=== PATIENT | male | born 1940 | race Caucasian/White ===

== ENCOUNTER 2017-02-28 01:00 | Inpatient (IN) | payer MEDICARE, BC ==
[~2017-02-28] VITALS: Ht 190.5 cm; Wt 89.4 kg
[~2017-02-28 01:00] MED LIST: BACLOFEN10 MG PO; CARAFATE1 GM/10 ML PO; LOSARTAN-HCTZ1 EACH; PANTOPRAZOLE SO40 MG PO; ULTRAM50 MG PO; VENLAFAXINE HCL75 M1 PO
[2017-02-28 01:27] LABS: BASOPHILS % 0.4 % (0.0-1.0); EOSINOPHILS # (AUTO) 0.2 (0.0-0.4); EOSINOPHILS % 2.4 % (0.0-6.0); HEMATOCRIT 37.4 % (38.2-49.6); HEMOGLOBIN 11.8 g/dL (14.0-18.0); LYMPHOCYTES # (AUTO) 0.7 (1.0-3.2); LYMPHOCYTES % 9.7 % (18.0-39.1); MEAN CORPUSCULAR HEMOGLOBIN 26.7 pg (28-32); MEAN CORPUSCULAR HGB CONC 31.6 g/dL (31-35); MEAN CORPUSCULAR VOLUME 84.6 fL (81-99); MONOCYTES # (AUTO) 0.4 (0.2-0.8); MONOCYTES % 5.6 % (4.4-11.3); NEUTROPHILS # (AUTO) 5.7 (2.1-6.9); NEUTROPHILS % 81.3 % (38.7-80.0); PLATELET COUNT 238 x10e3/uL (140-360); RED BLOOD COUNT 4.42 x10e6/uL (4.3-5.7); RED CELL DISTRIBUTION WIDTH 15.8 % (11.7-14.4)
[2017-02-28 01:37] LABS: INR 0.92; PROTHROMBIN TIME 12.8 seconds (11.9-14.5)
[2017-02-28 01:38] LABS: PARTIAL THROMBOPLASTIN TIME 27.2 seconds (23.8-35.5)
[2017-02-28 01:47] LABS: ALANINE AMINOTRANSFERASE 23 IU/L (0-55); ALBUMIN 3.6 g/dL (3.5-5.0); ALBUMIN/GLOBULIN RATIO 1.1 (0.8-2.0); ALKALINE PHOSPHATASE 91 IU/L (40-150); ANION GAP 15.6 mmol/L (8-16); BLOOD UREA NITROGEN 16 mg/dL (7-26); BUN/CREATININE RATIO 16 (6-25); CALCIUM 8.7 mg/dL (8.4-10.2); CARBON DIOXIDE 25 mmol/L (22-29); CHLORIDE 108 mmol/L (98-107); CREATINE KINASE 77 IU/L (30-200); CREATININE, SERUM 0.98 mg/dL (0.72-1.25); EST GLOMERULAR FILTRATION RATE > 60 ML/MIN (60-); GLUCOSE 114 mg/dL (74-118); MAGNESIUM 1.9 MG/DL (1.3-2.1); POTASSIUM 3.6 mmol/L (3.5-5.1); SODIUM 145 mmol/L (136-145)
[2017-02-28 01:48] LABS: B-TYPE NATRIURETIC PEPTIDE2 187.4 pg/mL (0-100)
[2017-02-28 02:06] LABS: THYROID STIMULATING HORMONE 1.241 uIU/mL (0.350-4.940); TROPONIN I 0.047 ng/mL (0-0.300)
--- NOTE | 2017-02-28 02:12 | Diagnostic Imaging Report ---
Examination: CT BRAIN WITHOUT CONTRAST History:Confusion. Altered mental status. Comparison studies:None Technique: Axial images were obtained from the skull base to the vertex. Coronal and sagittal images reconstructed from the axial data. Intravenous contrast: None Findings: Scalp: No abnormalities. Bones: No fractures, blastic or lytic lesions. Brain sulci: Appropriate for age. Ventricles: Normal in size and configuration. No hydrocephalus. Extra-axial space: No abnormalities. Parenchyma: There are mild confluent areas of hypoattenuation in the periventricular and subcortical white matter, nonspecific. A chronic infarcts are demonstrated in the, inferior right putamen anterior limb of the right internal capsule and left striatocapsular region. No masses, hemorrhage, or acute cortical based vascular insults. Sellar/suprasellar region: Partially CSF filled. Craniocervical junction: Patent foramen magnum. No Chiari one malformation. Incidental findings: None. Impression: 1. No acute intracranial abnormalities. 2. Mild chronic microvascular ischemic change. 3. Chronic lacunar infarcts, as above. Signed by: Dr. Kerry Sanders M.D. on 02/28/2017 2:08 AM
[2017-02-28 02:24] LABS: BILIRUBIN,URINE NEGATIVE (NEGATIVE); CLARITY,URINE CLEAR (CLEAR); COLOR,URINE YELLOW (YELLOW); KETONES,URINE NEGATIVE (NEGATIVE); LEUKOCYTE ESTERASE ,URINE NEGATIVE (NEGATIVE); NITRITE,URINE NEGATIVE (NEGATIVE); PROTEIN,URINE DIPSTICK NEGATIVE (NEGATIVE); URINE UROBILINOGEN 0.2 mg/dL (0.2 - 1)
[2017-02-28 02:35] LABS: BACTERIA,URINE RARE /HPF; RBC,URINE 0-5 /HPF (0-5); WBC,URINE (MAN) 0-5 /HPF (0-5)
--- NOTE | 2017-02-28 02:54 | Diagnostic Imaging Report ---
EXAMINATION: CHEST SINGLE (PORTABLE) INDICATION: Altered mental status COMPARISON: None FINDINGS: TUBES and LINES: None. LUNGS: Lungs are not well inflated. There are bibasilar atelectasis. There is mild prominence of the central pulmonary vasculature, consistent with pulmonary venous congestion. PLEURA: No pleural effusion or pneumothorax. HEART AND MEDIASTINUM: Cardiac size is mildly enlarged. There are atherosclerotic calcifications within the aorta. BONES AND SOFT TISSUES: No acute osseous lesion. Soft tissues are unremarkable. UPPER ABDOMEN: No free air under the diaphragm. IMPRESSION: No acute thoracic abnormality. Signed by: Dr. Harpreet Wheeler M.D. on 02/28/2017 2:51 AM
--- NOTE | 2017-02-28 03:11 | Diagnostic Imaging Report ---
EXAM: CT Abdomen and Pelvis WITHOUT contrast INDICATION: Abdominal rigidity COMPARISON: 06/16/2016 TECHNIQUE: Abdomen and pelvis were scanned utilizing a multidetector helical scanner from the lung base to the pubic symphysis without administration of IV contrast. Absence of intravenous contrast decreases sensitivity for detection of focal lesions and vascular pathology. Coronal and sagittal reformations were obtained. Routine protocol was performed. IV CONTRAST: None. ORAL CONTRAST: Water RADIATION DOSE: Total DLP: 616.88 mGy*cm Estimated effective dose: (DLP x 0.015 x size factor) mSv COMPLICATIONS: None FINDINGS: LINES and TUBES: None. LOWER THORAX: Mild cardiomegaly without decompensation. Coronary artery disease present. Small sliding hiatal hernia. HEPATOBILIARY: No focal hepatic lesions. No biliary ductal dilation. GALLBLADDER: No radio-opaque stones or sludge. No wall thickening. SPLEEN: No splenomegaly. PANCREAS: No focal masses or ductal dilatation. ADRENALS: No adrenal nodules KIDNEYS/URETERS: No hydronephrosis. No cystic or solid mass lesions. No stones. GI TRACT: No abnormal distention, wall thickening, or evidence of bowel obstruction. There are diverticula within the colon without evidence of diverticulitis. Large amount of stool throughout the colon more significant at the sigmoid colon. Appendix is normal. PELVIC ORGANS/BLADDER: Unremarkable. LYMPH NODES: No lymphadenopathy. VESSELS: There is severe atherosclerotic disease in the aorta and major arterial branches. PERITONEUM / RETROPERITONEUM: No free air or fluid. BONES: There are degenerative changes in the lumbar spine. SOFT TISSUES: Unremarkable. IMPRESSION: 1. No evidence of acute intra-abdominal or pelvic abnormality. 2. Moderate constipation. 3. 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 Harpreet Wheeler M.D. on 02/28/2017 3:07 AM
[2017-02-28] MEDS ORDERED: SODIUM CHLORIDE 0.9% 500ML 500 ML IV ONE (04:00)
[2017-02-28 04:06] LABS: AMPHETAMINES SCREEN,URINE NEGATIVE (NEGATIVE)
[2017-02-28 04:07] LABS: BENZODIAZEPINES SCREEN,URINE NEGATIVE (NEGATIVE); CANNABINOIDS SCREEN,URINE NEGATIVE (NEGATIVE); PHENCYCLIDINE SCREEN,URINE NEGATIVE (NEGATIVE)
[2017-02-28] MEDS ORDERED: TAMSULOSIN HCL0.4 MG (04:40)
[2017-02-28] MEDS ORDERED: GABAPENTIN100 MG PEG (04:40)
[2017-02-28] MEDS ORDERED: OXYBUTYNIN CHLOR5 M1 PO (04:40)
[2017-02-28] MEDS ORDERED: LOSARTAN POTASS25 MG PO (04:40)
[2017-02-28] MEDS ORDERED: FINASTERIDE5 MG PO (04:40)
[2017-02-28 04:49] LABS: ABG HCO3 27 mmol/L (23-28); ABG PCO2 39 mmHg (41-51); ABG PH 7.45 (7.31-7.41); ABG PO2 85 mmHg (80-105)
[2017-02-28] MEDS: SODIUM CHLORIDE 0.9% 1000ML 1,000 ML IV SCH ×2 (05:44→14:21)
[2017-02-28] MEDS ORDERED: HYDRALAZINE HCL 20 MG/ML VIAL IV STA (06:36)
[2017-02-28] MEDS ORDERED: HYDRALAZINE HCL 20 MG/ML VIAL ONE (06:42)
--- NOTE | 2017-02-28 09:49 | Diagnostic Imaging Report ---
History: Passed out Comparison studies: CT head 02/28/2017 Technique: Sagittal T2; axial DWI, FLAIR, MPGR, T1, Coronal FLAIR. Intravenous contrast: None Findings: Scalp: Suboccipital surgical changes with blooming artifact limiting evaluation . No masses . Bone marrow: Normal in signal intensity. Extra-axial: No masses, no fluid collections. Brain sulci: Appropriate for age. Ventricles: Normal in size . No hydrocephalus . Parenchyma: Confluent and scattered T2/FLAIR hyperintensities of the periventricular and deep white matter. Chronic lacunar infarct at the right striatocapsular and left thalamocapsular regions. Volume loss is seen at the lower vermis No masses, hemorrhage, acute or chronic vascular insults. Suprasellar region: No abnormalities. Craniocervical junction: No abnormalities. Patent foramen magnum. No Chiari one malformation. Vessels: Normal flow-voids in the arteries and sinuses. Mucous retention cysts at the right maxillary sinus. IMPRESSION: 1. No acute intracranial abnormalities. 2. Moderate chronic microvascular ischemic changes of the white matter and diffuse age-related volume loss. 3. Suboccipital surgical changes/fixation. Signed by: DR Manohar Holguin M.D. on 02/28/2017 9:46 AM
[2017-02-28 10:02] VITALS: BP 182/90
[2017-02-28 10:04] LABS: CREATINE KINASE MB 3.4 ng/mL (0.00-5.00); TROPONIN I 0.021 ng/mL (0-0.300)
[2017-02-28] MEDS ORDERED: ASPIRIN 81 MG CHEW TAB PO ONE (10:30)
[2017-02-28] MEDS ORDERED: TRAMADOL HCL 50 MG TAB PO PRN (10:30)
[2017-02-28] MEDS: NITROGLYCERIN 2% OINT 1 GM PKT TOP SCH ×2 (10:46→16:40)
[2017-02-28 10:58] VITALS: BP 182/90
[2017-02-28 11:05] VITALS: BP 182/90
--- NOTE | 2017-02-28 11:13 | History and Physical ---
ATTENDING PHYSICIAN: SHALINI Julian. CLINICAL HISTORY: A 76-year-old white man admitted via the emergency room for Dr. Maegan Austin because of altered mental status. This patient has history of hypertension, GI bleed, chronic pain followed by pain specialist and bladder ulcers. Admitted via the emergency room because of altered mental status, slurring of speech. This patient has had difficulty waking up recently and has been sleeping more than usual, but apparently was still in his normal state of health until 11 p.m., when the returned from choir meeting and noticed that he was in the game room slumped over, poorly responsive. He was brought to the emergency room where he had some slurring of speech. MRI scan showed volume loss, microvascular chronic lacunar infarct in the right capsular region as well as left thalamocapsular region. Blood tests were relatively benign with above borderline anemia. CT of the abdomen was unrevealing. Chest x-ray was negative. The patient is being admitted for further evaluation and treatment. PAST MEDICAL HISTORY: Remarkable for hypertension. PERSONAL/SOCIAL HISTORY: Denies smoking, drinking. 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 REVIEW OF SYSTEMS: Remarkable for traumatic injury to C2 resulting in chronic pain. ALLERGIES: None known. PHYSICAL EXAMINATION GENERAL: He is sleepy, disoriented. CARDIOVASCULAR EXAMINATION: Jugular veins were not distended. S1 S2 were regular. There is no appreciable murmur. RESPIRATORY: Clear. ABDOMEN: Soft. Bowel sounds are present. EXTREMITIES: Show no cyanosis, clubbing, edema. LABORATORY STUDIES: Electrocardiogram shows sinus rhythm. The white count is 6900, hemoglobin 11.8, platelet count 238,000. Electrolytes are normal. IMPRESSION 1. Altered mental status of undetermined etiology. Consider medications. Stroke is probably less likely because he has no focal findings. 2. Possible old lacunar infarcts. 3. Hypertension. 4. Mild anemia. 5. History of gastrointestinal ulcers. 6. History of bladder ulcers. 7. History of asthma. RECOMMENDATIONS: Echocardiogram Doppler scan of the carotid. Workup for possible stroke. Consult Neurology. Consider urology consultation with his physician, who is Dr. Bean Cox. This patient follows with Dr. Manda Farah, phone number [phone] for his [address] Farah is an interventional anesthesiologist. Job#: [id number] PEREIRA cc:MAEGAN AUSTIN MD
[2017-02-28] MEDS: SUCRALFATE 1 GM/10 ML SUSP PO SCH ×2 (11:30→16:40)
[2017-02-28 11:51] VITALS: BP 173/86
[2017-02-28 16:06] VITALS: BP 159/85
[2017-02-28 19:51] LABS: CREATINE KINASE MB 2.7 ng/mL (0.00-5.00); TROPONIN I 0.027 ng/mL (0-0.300)
[2017-02-28 20:06] VITALS: BP 143/78
[2017-02-28] MEDS: TRAMADOL HCL 50 MG TAB PO PRN (22:31)
[2017-03-01] VITALS (8 sets, daily range): BP systolic 115–207; BP diastolic 63–107
--- NOTE | 2017-03-01 00:05 | Consultation ---
DATE OF CONSULTATION: February 28, 2017 REASON FOR CONSULTATION: Incontinence and BPH. HISTORY: A 76-year-old male who was originally seen by me in the office on August 02, 2016, with a complaint of prostate enlargement, urinary incontinence, wearing pads, 3-4 pads per day, and urination every 2 hours and some times 1 hour during the day. The patient also stated that this had been going on for quite some time and progressively getting worse. Has seen other doctors about this, and nothing has been resolved. I discussed the problem with him. Obtained a PSA from his previous doctor. It was elevated at 5.7. I scanned the patient in the office the day that was seen. His bladder was empty. We started by doing some lab work to make sure that he did not have renal failure. In fact, his creatinine was 0.9, BUN of 26, glucose of 115, which was all normal. His sodium 139, potassium 4.3, calcium 9.2, albumin 4.2. All the tests were normal. The interesting scenario here was that he was scanned for 10 mL of postvoid residual. I feel that the patient may have a neurogenic bladder. Ordered renal ultrasound, which was read as normal, except for a small cyst on the superior pole of the right kidney. Urodynamic testing was performed, and it showed that the patient had a severe uninhibited bladder contraction with a small capacity bladder. When the contraction occurred, the patient emptied his bladder completely uninhibited without him being able to stop the contraction. He was brought to the office on August 23, 2016, and underwent a cystoscopy, which revealed an intravesical component of the prostate with moderate trabeculation and obstruction, as well as exudate compatible with prostatitis. At that time, he was started on Myrbetriq. That became too expensive for the patient, and therefore, he was switched over to oxybutynin. A repeat urodynamic revealed that the oxybutynin improved the pressures inside the bladder, meaning decreased the pressure inside the bladder. His incontinence was not as severe as prior to taking anticholinergics, but oxybutynin alone would not improve his problem any longer. His PSA was repeated on January 04, 2017. At that time, glucose was 90. His creatinine was 0.9. His BUN was 21 and his PSA was 1.2. That was after oxybutynin and antibiotics. Also, after Proscar and Flomax. His prostatitis and inflammation of the prostate with exudate that the patient had 5 months earlier had improved on the medication that was given. The patient had a severe trabeculation of the bladder. He obviously has a severe neurogenic bladder that he has had for quite some time with uninhibited bladder contractures that are quite severe, and improved on oxybutynin, but also an obstructed component due to the large prostate. At that time, I discussed the situation with the patient, and told him that perhaps the patient with the severe overactive bladder may be a candidate for Botox injections. We also discussed that with Botox he may go into urinary retention, and may need a [place] catheter and intermittent catheterization or indwelling for up to a few weeks. He may need to have some treatment of the prostate. I suggested not a TURP, because with his uninhibited bladder contraction, his incontinence will become worse. We discussed the possibility of having a UroLift if the Botox puts him in retention. At the time of discussion, the patient opted to continue taking oxybutynin since he has improved his symptoms, as well as the treatment with the Flomax and the Proscar that have also improved his inflammation since his PSA now is 1.2 instead of 5.3 as he had 5 months earlier. The patient is admitted now with mental confusion. Mental confusion is seen also in patients taking anticholinergics. I do not know if the oxybutynin had caused this, but he had been taking it now for approximately 5 months with no problems prior to this admission. Therefore, currently I will await further evaluation on the patient towards his mental confusion. We may need to stop the oxybutynin. As far as his bladder symptoms, there is nothing else I can do for the patient at this point. Botox is something that the patient will need to be placed under anesthesia to be given. At the present time, the patient is not a candidate for this. Job#: [id number] JORGE
[2017-03-01] MEDS: SODIUM CHLORIDE 0.9% 1000ML 1,000 ML IV SCH ×3 (01:00→20:22)
[2017-03-01 03:07] LABS: CREATINE KINASE MB 3.1 ng/mL (0.00-5.00); TROPONIN I 0.023 ng/mL (0-0.300)
[2017-03-01] MEDS: LOSARTAN POTASSIUM 25 MG TAB PO SCH (03:49)
[2017-03-01] MEDS: TRAMADOL HCL 50 MG TAB PO PRN ×3 (04:53→18:32)
[2017-03-01] MEDS: NITROGLYCERIN 2% OINT 1 GM PKT TOP SCH ×4 (05:25→16:52)
[2017-03-01 06:56] LABS: BASOPHILS % 0.5 % (0.0-1.0); EOSINOPHILS # (AUTO) 0.1 (0.0-0.4); EOSINOPHILS % 1.7 % (0.0-6.0); HEMATOCRIT 36.9 % (38.2-49.6); HEMOGLOBIN 11.8 g/dL (14.0-18.0); LYMPHOCYTES % 12.9 % (18.0-39.1); MEAN CORPUSCULAR HEMOGLOBIN 26.5 pg (28-32); MEAN CORPUSCULAR VOLUME 82.9 fL (81-99); MONOCYTES # (AUTO) 0.5 (0.2-0.8); MONOCYTES % 6.1 % (4.4-11.3); NEUTROPHILS % 78.4 % (38.7-80.0); PLATELET COUNT 246 x10e3/uL (140-360); RED BLOOD COUNT 4.45 x10e6/uL (4.3-5.7); RED CELL DISTRIBUTION WIDTH 15.7 % (11.7-14.4)
[2017-03-01] MEDS ORDERED: TERAZOSIN HCL 1 MG CAP PO SCH ×2 (07:15→07:30)
[2017-03-01 07:19] LABS: ALANINE AMINOTRANSFERASE 18 IU/L (0-55); ALBUMIN 3.3 g/dL (3.5-5.0); ALBUMIN/GLOBULIN RATIO 1.1 (0.8-2.0); ALKALINE PHOSPHATASE 84 IU/L (40-150); ANION GAP 12.6 mmol/L (8-16); BLOOD UREA NITROGEN 12 mg/dL (7-26); BUN/CREATININE RATIO 15 (6-25); CALCIUM 8.4 mg/dL (8.4-10.2); CARBON DIOXIDE 24 mmol/L (22-29); CHLORIDE 108 mmol/L (98-107); CREATININE, SERUM 0.79 mg/dL (0.72-1.25); EST GLOMERULAR FILTRATION RATE > 60 ML/MIN (60-); GLUCOSE 100 mg/dL (74-118); MAGNESIUM 2.1 MG/DL (1.3-2.1); POTASSIUM 3.6 mmol/L (3.5-5.1); SODIUM 141 mmol/L (136-145)
[2017-03-01] MEDS: SUCRALFATE 1 GM/10 ML SUSP PO SCH ×3 (07:55→16:52)
[2017-03-01] MEDS: TAMSULOSIN HCL 0.4 MG CAP PO SCH (07:55)
[2017-03-01] MEDS: PANTOPRAZOLE SOD 40 MG TABEC PO SCH (07:55)
[2017-03-01] MEDS: FINASTERIDE 5 MG TAB PO SCH (07:55)
[2017-03-01] MEDS: ACETAMINOPHEN 325 MG TAB PO PRN ×2 (09:38→15:35)
--- NOTE | 2017-03-01 10:11 | Cardiology Report ---
DATE OF STUDY: DOPPLER SCAN OF CAROTID ARTERIES The left and right carotid arteries were interrogated using the duplex scanning method. Left carotid artery shows heavy plaquing in the left carotid bulb. However, there is no flow impairment. Velocity, however, was increased in the left external carotid artery with velocity of 1.65 meters per second consistent with moderate stenosis. Left vertebral flow appears to be antegrade. Right carotid artery shows heavy partially calcified plaque at the right carotid bulb with significant luminal stenosis. However, the flow velocity was only 1.34 meters per second. Right vertebral flow appears to be antegrade. CONCLUSIONS 1. Large partially calcified bulky plaque in the right carotid bulb. However, the flow velocity was less than expected at 1.34 meters per second consistent with moderate stenosis in the range of 50% to 70%. 2. Heavily plaque left carotid bulb without significant flow impairment. 3. Moderate stenosis involving the left external carotid artery with velocity in the range of 1.65 meters per second. 4. Vertebral flow appears to be antegrade bilaterally. Job#: [id number] RI cc:MAEGAN AUSTIN MD
--- NOTE | 2017-03-01 10:14 | Cardiology Report ---
DATE OF STUDY: ECHOCARDIOGRAM M-MODE: Mildly dilated left atrium. Left ventricular hypertrophy. Normal contractility. Normal mitral and tricuspid valves. Aortic sclerosis. No pericardial effusion. SECTOR SCAN: Mildly dilated left atrium. Left ventricular hypertrophy. Normal contractility. Ejection fraction is approximately 65%. Aortic valve is mildly sclerotic. Mitral and tricuspid valves are normal. There is no pericardial effusion. CARDIAC DOPPLER STUDY WITH COLOR: Trace mitral and tricuspid regurgitation. CONCLUSIONS 1. Left ventricular hypertrophy with ejection fraction 65%. 2. Trace mitral regurgitation with mildly dilated left atrium. 3. Aortic sclerosis with no stenosis. 4. Trace tricuspid regurgitation without significant pulmonary hypertension. Job#: [id number] RI cc:MAEGAN AUSTIN MD
--- NOTE | 2017-03-01 14:46 | Diagnostic Imaging Report ---
PROCEDURE:X-RAY MODIFIED BARIUM SWALLOW COMPARISON:None. INDICATIONS:Globus sensation inferior swallowing, history of neck surgery. RADIATION DOSE: Fluoroscopy Time: Dose (Kerma) Area Product: Gycm2 Air Kerma (AK) value has been reviewed. It is below the limits set by the Radiation Protocol Committee (RPC) committee. FINDINGS: Normal oral phase. Vallecular residue on pharyngeal phase with globus sensation; resolved with ingestion of liquids. No penetration or aspiration. A small pulsation diverticulum is present. No cricopharyngeal abnormalities. CONCLUSION: No penetration or aspiration. Please see the report from speech pathology for complete details. Small pulsation diverticulum. Dictated by: Martha Puentes M.D. on 03/01/2017 at 14:52 Electronically approved by: Martha Puentes M.D. on 03/01/2017 at 14:52
--- NOTE | 2017-03-01 17:09 | Consultation ---
DATE OF CONSULTATION: March 01, 2017, at 2:30 in the afternoon NEUROLOGICAL CONSULTATION ATTENDING PHYSICIAN: Beltran Cespedes MD REASON FOR CONSULTATION: Altered mental status. This is a 76-year-old male who apparently had been in his normal state of health until the night of admission. They said the came home and found him in a room that was dark, sitting, collapsed there. Apparently, there was no response. It only lasted for a few minutes. She tried to get him up, and he fell forward. That is the reason they called an ambulance, and they brought him to the emergency room. The patient was confused, disoriented. Yesterday morning, he felt a little better, but still had confusion. According to his who was present in the room, he never had any kind of problem like this in the past. He denies any headache. He has chronic neck pain related to previous neck surgery. He denies any weakness in the upper and lower extremities. He has been following up with a pain specialist because of back pain and taking pain medications. PAST MEDICAL HISTORY 1. Hypertension. 2. Fracture of the neck. He underwent surgery for the neck twice. ALLERGIES: NONE KNOWN. SOCIAL HISTORY: He does not smoke or drink. He lives with his . REVIEW OF SYSTEMS: All 12 steps are negative except for what is described above. GENERAL PHYSICAL EXAMINATION VITAL SIGNS: Stable. GENERAL: The patient is sitting comfortably. LUNGS: Clear to auscultation. HEART: Regular sinus rhythm. No murmur. ABDOMEN: Nontender. No organomegaly. MUSCULOSKELETAL: Lower extremities have no edema, no cyanosis, no clubbing, chronic neck pain. NEUROLOGIC EXAMINATION MENTAL STATUS: He is awake and alert. He said today is the . He said it is January. He said 17. We said, "What is 17?" He said "191." He recognized his 's name. He knows he is at [facility]. Right and left orientation is normal. Naming body parts and colors is negative. CRANIAL NERVES: Pupils are both equal and reactive. The extraocular movements are full. Visual ham on confrontation are grossly normal. No facial weakness. Facial sensation is normal. Tongue protrudes in the midline. MOTOR POWER: Upper and lower extremities show no evidence of weakness in both proximal or distal muscles of both upper and lower extremities. The patient is able to elevate both arms and legs against gravity quite normally. DEEP TENDON REFLEXES: Triceps, biceps and radials are 1+. Knee jerks are 1+. Ankle jerks are absent bilaterally. Plantar stimulation is down bilaterally. SENSORY: Touch and pinprick are normal. HEAD: Normocephalic. NECK: Limitation of neck motion. GAIT: Deferred. LABORATORY WORKUP: CBC shows white count 7600, hemoglobin 11.8, hematocrit 35.9, platelets 243,000. Chemistry: Sodium 141, potassium 3.6, BUN 20, creatinine 0.79, estimated GFR greater than 60. Liver enzymes are normal. Toxicology is negative. Urinalysis is negative. MRI of the brain shows multiple small chronic lacunar infarctions seen bilaterally. No evidence of acute ischemic infarction or hemorrhagic lesions. IMPRESSION 1. Acute altered mental status, etiology undetermined, rule out toxic encephalopathy. 2. Hypertension. 3. Anemia. 4. History of asthma. I have discussed with the . I have reviewed the MRI of the brain, which does not show any pathology to explain this. There is no evidence of small stroke that the was concerned about. I think he is going to need physiotherapy, and I told her that here I saw him with walking with physical therapy with a walker. We will continue ambulation. Probably, he is going to need some rehabilitation. No further imaging testing is necessary at the present time. Job#: [id number]
[2017-03-01] MEDS: TERAZOSIN HCL 1 MG CAP PO SCH (21:12)
[2017-03-02] VITALS: BP 161/89
[2017-03-02] MEDS: TRAMADOL HCL 50 MG TAB PO PRN ×3 (02:30→20:35)
[2017-03-02 04:00] VITALS: BP 174/91
[2017-03-02] MEDS: LOSARTAN POTASSIUM 25 MG TAB PO SCH (05:40)
[2017-03-02] MEDS: SODIUM CHLORIDE 0.9% 1000ML 1,000 ML IV SCH ×2 (07:00→17:00)
[2017-03-02] MEDS: SUCRALFATE 1 GM/10 ML SUSP PO SCH ×3 (08:30→17:31)
[2017-03-02 08:45] VITALS: BP 172/93
[2017-03-02] MEDS: PANTOPRAZOLE SOD 40 MG TABEC PO SCH (09:18)
[2017-03-02] MEDS: FINASTERIDE 5 MG TAB PO SCH (09:18)
[2017-03-02] MEDS: TAMSULOSIN HCL 0.4 MG CAP PO SCH (09:18)
[2017-03-02 12:01] VITALS: BP 174/92
--- NOTE | 2017-03-02 12:53 | Consultation ---
DATE OF CONSULTATION: March 02, 2017 REHAB CONSULTATION REFERRING PHYSICIAN: Dr. Beltran Cespedes. I would like to thank Dr. Cespedes for asking me to see Mr. Medeiros in consultation. REASON FOR CONSULTATION 1. Altered mental status. 2. Impaired mobility. 3. History of C2 fracture. HISTORY: Mr. Medeiros is a 76-year-old male who was in his normal state of health until his came home and found him in a room that was dark, sitting collapsed there, was unresponsive. It lasted for a few minutes, and then they tried to get him up but then he fell forward again. Patient still had some confusion. He came into the hospital for further evaluation. This had not happened to him before. Patient was not as mobile as before, was admitted on February 28, 2017. Patient was seen by Dr. Downey and not felt to have a new stroke. Not really complaining of neck pain at this time. Underwent brain MRI which showed no acute intracranial abnormalities, moderate chronic microvascular ischemic changes in white matter, and diffuse age-related volume loss. Suboccipital and surgical changes with fixation. He had a modified barium swallow done yesterday which showed no penetration or aspiration. Carotid Doppler study was done also, which showed large, partially calcified, bulky plaque in the right carotid bulb. However, the flow velocity was less than expected, 1.3 liters per second, consistent with moderate stenosis in the range of 50% to 70%, heavy plaque in the left carotid bulb without significant impairment of flow, moderate stenosis involving the left external carotid artery with velocity in the range of 1.6 meters per second, and vertebral flow appears to be antegrade bilaterally. PAST MEDICAL HISTORY: Hypertension, fracture of the neck and left lateral meniscal injury, chronic arthritic changes in the hands. SURGERIES: Include a CT fracture repair and revision. He has also had a left knee replacement. ALLERGIES: NO KNOWN DRUG ALLERGIES. HABITS: Nonsmoker, nondrinker. SOCIAL HISTORY: Lives with his in a two-story home, but bedroom is downstairs. Was a limited ambulator, really did not go out in the community much, walks slowly but without any kind of assistive device. FAMILY HISTORY: Noncontributory. CONSTITUTIONAL REVIEW OF SYSTEMS GENERAL: He has a slow type of gait secondary to his injury from before and meniscal injury. EYES: Denies. EARS: Denies. ORAL: Has some swallowing issues, but swallow study was negative. CARDIAC: Denies. GI: Denies. : Has frequency of urine, cannot get to the bathroom in time because of his bladder spasticity. NEUROLOGIC: Has muscle wasting of the hands in addition to arthritis. HEMATOLOGIC: Denies. LABS: White cell count of 7.66, hemoglobin 11.8, hematocrit 36.9, platelets of 246. Sodium is 141, potassium 3.6, BUN of 12, creatinine 0.79. THERAPY NOTES: Show that the patient sat up at the edge of the bed. No issues. Demonstrated good sitting balance. Able to ambulate with a rolling walker 200 feet with slow gait. No loss of balance. Did need some requeuing to stand straight up and was able to walk the last 50 feet without any rolling walker and did demonstrate good standing balance and no loss of balance. PHYSICAL EXAMINATION GENERAL: The patient is awake, alert, oriented. No apparent distress at this time. EYES: Gaze is conjugate. ORAL: Tongue is midline. No dysarthria. NECK: Palpated the neck. No pain with palpation, no pain at all at this time. HEART: Regular. LUNGS: Fair entry. ABDOMEN: Nondistended, nontender. EXTREMITIES: He has arthritic changes of the PIP, MCP and to a lesser extent the DIP. There is intrinsic muscle wasting of the hands. Thenar prominence is diminished as well as the intrinsic muscles bilaterally. This is not new. He had pretty much full range of motion to the legs. A little bit of pain to the left lateral meniscus area, which has been an ongoing problem. SENSORY-STEPHENS: Denies any numbness or tingling, hands, feet or face. No new sensory changes or neurologic changes at this time. MANUAL MUSCLE TESTING: Doubler Operator was essentially 4-/5 strength bilaterally. Elbow flexion and extension, shoulder flexion and extension is 4+/5 to 5/5 bilaterally. In the lower extremities, hip and knee and ankle dorsiflexion and plantar flexion is 5/5 strength throughout. IMPRESSION 1. Encephalopathy. Patient currently seems to be very close to his baseline with regards to mobility. 2. He has some intrinsic muscle wasting most likely associated with his previous cervical fracture. 3. Rheumatoid arthritis to the hands. 4. Left meniscal injury, old. PLAN: At this time, the patient is not quite back to baseline but is close to it; and given the fact that he can walk pretty much slowly and will be there, they elect to go home, which is appropriate with home health therapy just to keep him mobilizing. I reiterated need for safety, especially with gait, but he is actually doing a pretty good job right now. May want to consider using a rolling walker until he is really steady on his feet. They agree to home health services as his will be with him and early functioning seems to be pretty close to his baseline. Thank you once again for allowing me to participate in the care of this very interesting patient. PRECAUTIONS: Falls. Job#: [id number] EV
[2017-03-02] MEDS ORDERED: NEOMYCIN/POLYMYXIN/BACITRACIN 15 GM TUBE TOP PRN (16:00)
[2017-03-02 17:11] VITALS: BP 141/85
[2017-03-02] MEDS ORDERED: MAGNESIUM HYDROXIDE 30 ML UDC PO NR (18:00)
[2017-03-02 19:40] VITALS: BP 175/93
[2017-03-02] MEDS: TERAZOSIN HCL 1 MG CAP PO SCH (20:20)
[2017-03-03] VITALS: BP 160/76
[2017-03-03] MEDS: SODIUM CHLORIDE 0.9% 1000ML 1,000 ML IV SCH ×2 (03:00→13:00)
[2017-03-03 05:00] VITALS: BP 148/78
[2017-03-03 07:56] VITALS: BP 158/86
[2017-03-03] MEDS: TRAMADOL HCL 50 MG TAB PO PRN (09:00)
[2017-03-03] MEDS: SUCRALFATE 1 GM/10 ML SUSP PO SCH ×2 (09:00→12:10)
[2017-03-03] MEDS: TAMSULOSIN HCL 0.4 MG CAP PO SCH (09:00)
[2017-03-03] MEDS: LOSARTAN POTASSIUM 25 MG TAB PO SCH (09:00)
[2017-03-03] MEDS: PANTOPRAZOLE SOD 40 MG TABEC PO SCH (09:00)
[2017-03-03] MEDS: FINASTERIDE 5 MG TAB PO SCH (09:00)
[2017-03-03 12:16] VITALS: BP 161/90
[2017-03-03] MEDS ORDERED: COZAAR25 MG PO (12:18)
[2017-03-03] MEDS ORDERED: TERAZOSIN HCL1 MG PO (12:18)
[2017-03-03] MEDS ORDERED: LOSARTAN POTASSIUM 25 MG TAB PO SCH (17:00)
--- NOTE | 2017-03-04 08:28 | Discharge Summary ---
CLINICAL HISTORY: This is a 76-year-old white man who presented to the emergency room with acute altered mental status possibly due to toxic encephalopathy. Please refer to my previous dictation concerning details of current illness, past medical history, personal and social history, family history, review of systems, physical examination and initial laboratory studies. HOSPITAL COURSE: The patient had an MRI scan at the time of admission which showed bilateral lacunar infarct, apparently old. There were microvascular chronic changes in the white matter and cervical neck surgery noted. Echocardiogram carotid Dopp scans were negative for causes of CVA. Barium swallow showed no aspiration. Patient was able to eat, swallow his pill, participate with rehabilitation. Eventually was able to walk with walker nearly back to baseline. Rehab consultation was obtained with Dr. Shaun Berry, who felt the patient was close to baseline. Can go home. Bean Cox, urologist, also saw him and found the patient can be discharged. Patient became oriented x4, able to name the President. Wants to go home. feels that she can take care of him. They have been cautioned concerning safety, to walk slowly with the walker. We will send home health to their house. DISCHARGE DIAGNOSES 1. Toxic encephalopathy possibly related to medications with the patient cautioned to decrease pain medications. 2. Chronic pain. 3. History of cervical spine injury and surgery. 4. Left ventricular ejection fraction 65%. 5. 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 6. Hypertension. 7. Rheumatoid arthritis. 8. Mild anemia, hemoglobin 11.8. 9. History of gastrointestinal ulcer. 10. History of asthma. 11. History of bladder ulcers. 12. Old lacunar infarct, probably not related to altered mental status. DISCHARGE MEDICATIONS: The patient is discharged on losartan 50 mg p.o. b.i.d., 2 mg p.o. nightly for management of blood pressure, oxybutynin, gabapentin, lactoferrin, Baclofen, and venlafaxine should be used with caution. Finasteride 5 mg per day may be continued, pantoprazole 40 mg p.o. daily, Carafate 1 g p.o. daily, tamsulosin 0.4 mg p.o. q.24 hours and Ultram 50 mg q.6 hours p.r.n. will be continued. ADDENDUM: This patient also sees a pain specialist. CHELSI BURRELL MD Job#: [id number] PEREIRA cc:MD BEAN GARCIA MD MAURICE HADDAD, MD
== END 2017-03-03 14:52 | disposition home health service (06) | DRG 93 ==
LOC: ER 01:00 → ERHOLD 05:04 → MED/SURG 09:18
PROVIDERS: ADMIT Internal Medicine Cardiovascular Disease; ATTEND Internal Medicine Cardiovascular Disease
DX: G92 Toxic encephalopathy (principal); D64.9 Anemia, unspecified; M06.9 Rheumatoid arthritis, unspecified; I10 Essential (primary) hypertension; T44.3X5A Adverse effect of other parasympatholytics [anticholinergics and antimuscarinics] and spasmolytics, initial encounter; N40.1 Benign prostatic hyperplasia with lower urinary tract symptoms; R33.8 Other retention of urine; Z86.73 Personal history of transient ischemic attack (TIA), and cerebral infarction without residual deficits; J45.909 Unspecified asthma, uncomplicated; I51.7 Cardiomegaly; I65.21 Occlusion and stenosis of right carotid artery; G89.29 Other chronic pain; R26.89 Other abnormalities of gait and mobility; M62.58 Muscle wasting and atrophy, not elsewhere classified, other site
CPT/HCPCS: 36415; 36600; 70450; 70551; 71010; 74176; 74230; 80053; 80307; 80320; 81001; 82140; 82550; 82553; 82805; 83605; 83735; 83880; 84443; 84484; 85025; 85610; 85651; 85730; 86039; 87040; 87086; 93005; 93306; 93880; 99284; J0360; J7030; J7040

== ENCOUNTER → 2017-12-28 | Day surgery (SDC) | payer MEDICARE, BC ==
[2017-12-25 14:25] LABS: BASOPHILS # (AUTO) 0.1 (0.0-0.1); BASOPHILS % 1.3 % (0.0-1.0); EOSINOPHILS # (AUTO) 0.1 (0.0-0.4); EOSINOPHILS % 2.9 % (0.0-6.0); HEMATOCRIT 34.4 % (38.2-49.6); HEMOGLOBIN 10.6 g/dL (14.0-18.0); LYMPHOCYTES # (AUTO) 0.5 (1.0-3.2); LYMPHOCYTES % 12.5 % (18.0-39.1); MEAN CORPUSCULAR HGB CONC 30.8 g/dL (31-35); MEAN CORPUSCULAR VOLUME 87.5 fL (81-99); MONOCYTES # (AUTO) 0.3 (0.2-0.8); MONOCYTES % 7.8 % (4.4-11.3); NEUTROPHILS # (AUTO) 2.9 (2.1-6.9); PLATELET COUNT 177 x10e3/uL (140-360); RED BLOOD COUNT 3.93 x10e6/uL (4.3-5.7); RED CELL DISTRIBUTION WIDTH 16.3 % (11.7-14.4)
[2017-12-25 15:08] LABS: RBC MORPHOLOGY COMMENT NORMAL
[2017-12-25 15:09] LABS: PLATELET ESTIMATE ADEQUATE; PLATELET MORPHOLOGY COMMENT NORMAL
[~2017-12-28] MED LIST changes: +ASPIRIN325 MG PO; +COZAAR25 MG PO; +EPINEPHRINE HCL INJ 1 MG/ML AMP ONE; +FENTANYL CITRATE/PF 100MCG/2 ML INJ ONE; +FENTANYL1 EAC1 TD; +FINASTERIDE5 MG PO; +GABAPENTIN100 MG; +GABAPENTIN100 MG PEG; +ISOSORBIDE DINI20 MG PO; +LIDOCAINE HCL 2% LOCAL INJ 5 ML SDV VIAL INJ ONE; +LOSARTAN POTASS25 MG PO; +METOCLOPRAMIDE HCL 10 MG/2ML VIAL ONE; +METOPROLOL TART25 MG PO; +MIDAZOLAM HCL 2 MG/2 ML VIAL ONE; +OXYBUTYNIN CHLOR5 M1 PO; +OXYBUTYNIN CHLOR5 MG PO; +PANTOPRAZOLE 40 MG 10ML VIAL ONE; +PROPOFOL IV EMULSION 10 MG/ML 50 ML VIAL ONE; +SIMVASTATIN20 MG PO; +TAMSULOSIN HCL0.4 MG; +TERAZOSIN HCL1 MG PO; +VENLAFAXINE HCL75 MG PO
[2017-12-28 15:53] LABS: INR 1.16; PROTHROMBIN TIME 13.9 seconds (11.9-14.5)
[2017-12-28 15:54] LABS: PARTIAL THROMBOPLASTIN TIME 33.8 seconds (23.8-35.5)
--- NOTE | 2017-12-28 15:54 | Operative Report ---
DATE OF PROCEDURE: December 28, 2017 REFERRING PHYSICIAN: Erika Mccord MD PROCEDURE PERFORMED: Esophagogastroduodenoscopy with esophageal dilatation and duodenal stricture dilatation per TTS balloon dilators. MEDICATION: Patient was done under MAC. INDICATIONS FOR PROCEDURE: Dysphagia, nausea, vomiting, postprandial bloating. MEDICATION: Patient was done under MAC. Please see anesthesiologist's note. PROCEDURE: With the patient in the left lateral decubitus position, the flexible fiberoptic Olympus gastroscope was introduced into the esophagus under direct visualization without any difficulty. There were some erosions noted in the distal esophagus. A mild stricture was noted at the GE junction, and that was dilated to a size 52-Danish Romero. The scope was then advanced with ease into the stomach, traversing a moderate-size hiatal hernia. A large amount of retained liquid debris was noted in the stomach, and that was aspirated with the scope. The mucosa overlying the antrum and the body revealed some patchy areas of intense erythema. Pylorus was of normal contour and shape. It was intubated with ease. There was a tight stricture at the junction of the bulb and 2nd portion, and that was dilated to a size 20-Danish per TTS balloon dilators. The scope was then advanced with ease to the 2nd portion of the duodenum. It was then withdrawn slowly, and the mucosa overlying the proximal 2nd portion grossly appeared to be within normal limits. There was some oozing noted from the stricture site post dilatation, and 1:10,000 epinephrine was injected with good hemostasis and the site was hemoclipped times 2. The scope was then withdrawn back into the stomach, and the stomach was decompressed. The scope was subsequently withdrawn. Patient tolerated the procedure well. IMPRESSION 1. Erosive esophagitis. 2. Esophageal stricture at gastroesophageal junction dilated to a size 52-Danish Romero. 3. Moderate-size hiatal hernia. 4. Gastritis. 5. 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 6. Injection therapy with 1:10,000 epinephrine as well as hemoclipping times 2 of the duodenal stricture that bled post dilatation. Good hemostasis was attained. PLAN: Increase Protonix to 40 mg 1 p.o. a.c. b.i.d. Continue Carafate 1 gram p.o. a.c. t.i.d. and check PT and PTT. Job#: [id number] cc:ERIKA MCCORD MD
--- NOTE | 2017-12-28 17:35 | Diagnostic Imaging Report ---
Exam: Abdominal film Clinical History: Abdominal pain, stomach pain Comparison: CT abdomen and pelvis 02/26/2017 DISCUSSION: Multiple centrally located small bowel loops which are mildly to moderately dilated, with maximal measurement of approximately 4.0 cm. Moderate retained stool in the left colon. There is noted in the rectum. No abnormal calcifications project over the genitourinary system. No acute bony abnormalities. Degenerative disc changes in the lumbosacral spine, with associated mild leftward curvature. IMPRESSION: 1. Multiple centrally located small bowel loops show mild to moderately dilated. This may represent small bowel obstruction versus ileus. The staff physician below has personally reviewed this exam on the date of dictation. Signed by: Dr. Nuno Riggs M.D. on 12/28/2017 5:31 PM
[2017-12-28 17:50] VITALS: BP 151/75
== END | disposition home or self-care (01) ==
LOC: OR 11:21
PROVIDERS: ATTEND Internal Medicine Gastroenterology
DX: K22.2 Esophageal obstruction (principal); K31.5 Obstruction of duodenum; K29.70 Gastritis, unspecified, without bleeding; K22.10 Ulcer of esophagus without bleeding; K44.9 Diaphragmatic hernia without obstruction or gangrene; K31.89 Other diseases of stomach and duodenum; I10 Essential (primary) hypertension; J45.909 Unspecified asthma, uncomplicated; K21.9 Gastro-esophageal reflux disease without esophagitis; R53.1 Weakness; F41.9 Anxiety disorder, unspecified; F32.9 Major depressive disorder, single episode, unspecified; Z01.810 Encounter for preprocedural cardiovascular examination; Z01.812 Encounter for preprocedural laboratory examination; Z96.659 Presence of unspecified artificial knee joint; Z86.73 Personal history of transient ischemic attack (TIA), and cerebral infarction without residual deficits
CPT/HCPCS: 36415 ×2; 43245; 43450; 74018; 85025; 85610; 85730; 93005; C1726; J0171; J2001; J2250; J2765; 43235

== ENCOUNTER 2018-01-02 11:25 | Inpatient (IN) | payer MEDICARE, BC ==
[~2018-01-02] VITALS: Ht 190.5 cm; Wt 92.2 kg
[2018-01-02] VITALS (7 sets, daily range): BP systolic 140–170; BP diastolic 86–101
[~2018-01-02 11:25] MED LIST changes: -ASPIRIN325 MG PO; -EPINEPHRINE HCL INJ 1 MG/ML AMP ONE; -FENTANYL CITRATE/PF 100MCG/2 ML INJ ONE; -GABAPENTIN100 MG; +GABAPENTIN100 MG PO; -ISOSORBIDE DINI20 MG PO; -LIDOCAINE HCL 2% LOCAL INJ 5 ML SDV VIAL INJ ONE; -METOCLOPRAMIDE HCL 10 MG/2ML VIAL ONE; -METOPROLOL TART25 MG PO; -MIDAZOLAM HCL 2 MG/2 ML VIAL ONE; -PANTOPRAZOLE 40 MG 10ML VIAL ONE; -PROPOFOL IV EMULSION 10 MG/ML 50 ML VIAL ONE; -SIMVASTATIN20 MG PO; -TAMSULOSIN HCL0.4 MG; +TAMSULOSIN HCL0.4 MG PO
[2018-01-02] MEDS ORDERED: SODIUM CHLORIDE 0.9% 1000ML 1,000 ML IV STA (11:29)
[2018-01-02] MEDS ORDERED: ONDANSETRON HCL INJ 2 MG/ML VIAL IV STA (11:29)
[2018-01-02] MEDS ORDERED: ACETAMINOPHEN 325 MG TAB PO STA (11:29)
[2018-01-02] MEDS ORDERED: DIATRIZOATE MEGL/DIATRIZOA SOD 30 ML BTL PO ONE (11:58)
[2018-01-02 13:21] LABS: BASOPHILS % 0.9 % (0.0-1.0); EOSINOPHILS # (AUTO) 0.3 (0.0-0.4); EOSINOPHILS % 6.1 % (0.0-6.0); HEMATOCRIT 38.6 % (38.2-49.6); HEMOGLOBIN 12.3 g/dL (14.0-18.0); LYMPHOCYTES # (AUTO) 1.1 (1.0-3.2); LYMPHOCYTES % 24.9 % (18.0-39.1); MEAN CORPUSCULAR HEMOGLOBIN 27.3 pg (28-32); MEAN CORPUSCULAR HGB CONC 31.9 g/dL (31-35); MEAN CORPUSCULAR VOLUME 85.8 fL (81-99); MONOCYTES # (AUTO) 0.4 (0.2-0.8); MONOCYTES % 8.8 % (4.4-11.3); NEUTROPHILS # (AUTO) 2.7 (2.1-6.9); NEUTROPHILS % 59.1 % (38.7-80.0); PLATELET COUNT 252 x10e3/uL (140-360); RED CELL DISTRIBUTION WIDTH 15.9 % (11.7-14.4)
[2018-01-02 13:32] LABS: INR 1.04; PROTHROMBIN TIME 12.8 seconds (11.9-14.5)
[2018-01-02 13:33] LABS: PARTIAL THROMBOPLASTIN TIME 31.4 seconds (23.8-35.5)
[2018-01-02 13:47] LABS: ALANINE AMINOTRANSFERASE 11 IU/L (0-55); ALBUMIN 4.1 g/dL (3.5-5.0); ALBUMIN/GLOBULIN RATIO 1.3 (0.8-2.0); ALKALINE PHOSPHATASE 98 IU/L (40-150); ANION GAP 13.6 mmol/L (8-16); BLOOD UREA NITROGEN 23 mg/dL (7-26); BUN/CREATININE RATIO 21 (6-25); CALCIUM 9.6 mg/dL (8.4-10.2); CARBON DIOXIDE 24 mmol/L (22-29); CHLORIDE 103 mmol/L (98-107); CREATINE KINASE 161 IU/L (30-200); CREATININE, SERUM 1.07 mg/dL (0.72-1.25); EST GLOMERULAR FILTRATION RATE > 60 ML/MIN (60-); GLUCOSE 111 mg/dL (74-118); LIPASE 15 U/L (8-78); POTASSIUM 3.6 mmol/L (3.5-5.1); SODIUM 137 mmol/L (136-145)
--- NOTE | 2018-01-02 14:37 | Diagnostic Imaging Report ---
Examination: Single AP view of the chest. COMPARISON: 02/28/2017 INDICATION: Abdominal pain DISCUSSION: The lungs are reasonably well inflated. There is linear opacity in the lower lobes compatible with subsegmental atelectasis. No focal consolidation, sizable pleural effusion, or pneumothorax. Tortuous thoracic aorta. Otherwise normal cardiomediastinal contour. No acute osseous abnormality. IMPRESSION: Subsegmental atelectasis in the lower lobes. Otherwise no acute cardiopulmonary abnormality. Signed by: Dr. Huseyin Roy M.D. on 01/02/2018 2:34 PM
--- NOTE | 2018-01-02 15:05 | Diagnostic Imaging Report ---
EXAMINATION: CT of the abdomen and pelvis with contrast. TECHNIQUE: Spiral CT images of the abdomen and pelvis were performed from the lung bases to the lesser trochanters after the intravenous administration of 100 cc of Isovue-370 and the oral administration of Gastrografin. Coronal and sagittal reformatted images were obtained. COMPARISON: CT abdomen and pelvis without contrast 02/28/2017 CLINICAL HISTORY:Concern for small bowel obstruction, diverticulitis, recent KESHIA DISCUSSION: ABDOMEN/PELVIS: LOWER THORAX:Stable small hilar lymph nodes or cysts along the left inferior pulmonary vein. Coronary artery calcifications. Subsegmental atelectasis in the lower lobes, lingula, and right middle lobe. Small bilateral Bochdalek diaphragmatic hernias. HEPATOBILIARY: No focal hepatic lesions. No intra-or extrahepatic biliary ductal dilation. The gallbladder is normal. SPLEEN: No splenomegaly. PANCREAS: No focal masses or ductal dilatation. ADRENALS: No adrenal nodules. KIDNEYS/URETERS: Punctate nonobstructing calculus in the left kidney is unchanged. No hydronephrosis, additional calculi, or renal mass lesion. PELVIC ORGANS/BLADDER: The urinary bladder is unremarkable. Multiple metallic clips within the prostate. PERITONEUM/RETROPERITONEUM: No free air or fluid. LYMPH NODES: No pelvic sidewall, retroperitoneal, or mesenteric lymphadenopathy. VESSELS: The abdominal aorta, major branch vessels, and iliac arterial systems are noted for moderate atherosclerotic plaque without aneurysmal dilatation. There are 2 right renal arteries and a single left renal artery. Portal vein, splenic vein, and central superior mesenteric vein are patent. GI TRACT: The large bowel shows no distention or wall thickening. Gas and fecal material are noted throughout the large bowel. Normal appendix. Metallic clips in the distal esophagus as well as at the duodenal bulb. No definite extraluminal air. BONES AND SOFT TISSUE: Bilateral fat-containing inguinal hernias. No additional focal soft tissue abnormalities. No osseous destructive lesions. Degenerative joint disease of the sacroiliac joints. Degenerative disc disease of the lumbar spine. IMPRESSION: No acute intra-abdominal or pelvic CT abnormalities. Metallic clips, presumably placed endoscopically, within the distal esophagus and duodenal bulb. No extraluminal air. Nonobstructive left renal calculus. Signed by: Dr. Huseyin Roy M.D. on 01/02/2018 3:01 PM
[2018-01-02] MEDS ORDERED: SODIUM CHLORIDE 0.9% 50ML 50 ML ONE (15:14)
[2018-01-02] MEDS ORDERED: IOPAMIDOL 370 MG/ML 200 ML INFUS..BTL INJ ONE (15:14)
[2018-01-02] MEDS ORDERED: SODIUM CHLORIDE FLUSH 10 ML SYR INJ PRN (15:45)
[2018-01-02] MEDS ORDERED: NITROGLYCERIN 0.4 MG SUBL SL PRN (15:45)
[2018-01-02] MEDS ORDERED: SODIUM CHLORIDE 0.9% 1000ML 1,000 ML ONE (15:52)
[2018-01-02] MEDS: FAMOTIDINE 20 MG/2 ML VIAL IV SCH (16:07)
[2018-01-02] MEDS: MORPHINE SULFATE 2 MG/ML SYR IV PRN ×2 (16:08→22:36)
[2018-01-02] MEDS: ONDANSETRON HCL INJ 2 MG/ML VIAL IV PRN (16:08)
[2018-01-02] MEDS ORDERED: LABETALOL HCL 5 MG/ML 20ML VIAL IV STA (16:13)
[2018-01-02] MEDS ORDERED: ENOXAPARIN SODIUM INJ 100 MG/ML SYR SC SCH (17:00)
[2018-01-02 17:17] LABS: BILIRUBIN,URINE NEGATIVE (NEGATIVE); CLARITY,URINE CLEAR (CLEAR); COLOR,URINE YELLOW (YELLOW); KETONES,URINE NEGATIVE (NEGATIVE); LEUKOCYTE ESTERASE ,URINE NEGATIVE (NEGATIVE); NITRITE,URINE NEGATIVE (NEGATIVE); PROTEIN,URINE DIPSTICK NEGATIVE (NEGATIVE); URINE UROBILINOGEN 0.2 mg/dL (0.2 - 1)
--- NOTE | 2018-01-02 19:29 | History and Physical ---
CLINICAL HISTORY: This is a 77-year-old white man, a patient DrAngelica Austin, seen in the emergency room at [facility] because of elevated troponin of 0.06 and CK-MB of 7.3 with normal CK of 161. This patient was hospitalized in February 2017 with altered mental status thought to be related to medications since he suffers from chronic pain and is taking pain medication on a chronic basis. He has a history of old lacunar infarction, hypertension, mild anemia, duodenal ulcer, bladder ulcer and asthma. His pain specialist is Dr. Whitney. His urologist is Dr. Bean Cox. His stone paver is Dr. Eric Liu. Five days ago, he had seen Dr. Eric Liu and was found to have stricture in the duodenum. This was dilated, and a stent was implanted in that area. Since then, the patient reported not having felt well. His main pain appears to be his posterior neck. However, he also complains of knee and ankle pains. He may have mild abdominal pains. Overall, he was just not feeling well. His temperature was 98.7. According to the family, this was high for him. They brought him to the emergency room. In the emergency room, he had cardiac enzymes drawn, and they were elevated as above. EKG showed no acute changes. Chest x-ray was negative. CT scan of the abdomen showed a stent in the duodenum. He is being admitted for serial enzymes. PAST MEDICAL HISTORY: Remarkable for C2 injury, which resulted in his chronic pain and disability. Also remarkable for the above-mentioned conditions. MEDICATIONS: Include: 1. Baclofen 10 mg p.o. t.i.d. 2. Fentanyl patch. 3. Finasteride 5 mg daily. 4. Gabapentin 100 mg. 5. Losartan 50 mg b.i.d. 6. Pantoprazole 40 mg daily. 7. Carafate 1 gram p.o. daily. 8. Tamsulosin 0.4 mg daily. 9. Terazosin 2 mg at bedtime. 10. Tramadol. 11. Venlafaxine. PERSONAL AND SOCIAL HISTORY: Denies smoking and drinking. 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 ALLERGIES: NONE KNOWN. REVIEW OF SYSTEMS: Deferred and not felt to be reliable. PHYSICAL EXAMINATION VITAL SIGNS: Stable. CARDIOVASCULAR: Jugular veins are not distended. S1 and S2 were regular. There is no appreciable murmur. RESPIRATORY: Clear. ABDOMEN: Soft. Bowel sounds are present. EXTREMITIES: No cyanosis, clubbing or edema. LABORATORY STUDIES: As mentioned. IMPRESSION 1. Slightly elevated troponin of 0.6, with CK-MB of 7.8 and with normal CK of undetermined etiology, with the patient not complaining of any chest pains or upper back pains and with normal electrocardiogram and chest x-ray. 2. Chronic pain on chronic analgesics including fentanyl, followed by Dr. Whitney, pain specialist. 3. History of cervical spine injury apparently causing his chronic pain. 4. History of toxic encephalopathy possibly related to medications. 5. Dementia. 6. 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 7. Left ventricular ejection fraction of 65%. 8. Hypertension. 9. Rheumatoid arthritis. 10. History of mild anemia. 11. Recent duodenal stent for duodenal stricture and history of duodenal ulcer. 12. History of asthma. 13. History of bladder cancer. 14. Old lacunar infarct, possibly unrelated to his current condition. RECOMMENDATIONS: Serial enzyme studies. GI consultation with Dr. Eric Liu. Job#: [id number] cc:MAEGAN AUSTIN MD
[2018-01-02] MEDS ORDERED: MORPHINE SULFATE 2 MG/ML SYR IV ONE (20:16)
[2018-01-02] MEDS: TRAMADOL HCL 50 MG TAB PO PRN (20:28)
[2018-01-02 20:59] LABS: CREATINE KINASE MB 5.6 ng/mL (0-5.0)
[2018-01-02] MEDS: TERAZOSIN HCL 1 MG CAP PO SCH (22:36)
[2018-01-02] MEDS: BACLOFEN 10 MG TAB PO SCH (22:37)
[2018-01-02] MEDS: LOSARTAN POTASSIUM 25 MG TAB PO SCH (22:37)
[2018-01-02] MEDS ORDERED: PANTOPRAZOLE 40 MG 10ML VIAL IV STA (23:43)
[2018-01-02] MEDS: PANTOPRAZOL 40MG/SOD CHL 0.9% 50 ML IV SCH (23:45)
[2018-01-03] VITALS (22 sets, daily range): BP systolic 116–181; BP diastolic 83–132
[2018-01-03 00:49] LABS: CREATINE KINASE MB 5.3 ng/mL (0-5.0)
[2018-01-03] MEDS: MORPHINE SULFATE 2 MG/ML SYR IV PRN ×3 (01:34→19:30)
[2018-01-03] MEDS: FAMOTIDINE 20 MG/2 ML VIAL IV SCH ×2 (04:00→16:00)
[2018-01-03 04:45] LABS: EOSINOPHILS # (AUTO) 0.2 (0.0-0.4); EOSINOPHILS % 5.2 % (0.0-6.0); HEMATOCRIT 32.3 % (38.2-49.6); HEMOGLOBIN 10.2 g/dL (14.0-18.0); LYMPHOCYTES % 24.9 % (18.0-39.1); MEAN CORPUSCULAR HEMOGLOBIN 27.2 pg (28-32); MEAN CORPUSCULAR HGB CONC 31.6 g/dL (31-35); MEAN CORPUSCULAR VOLUME 86.1 fL (81-99); MONOCYTES # (AUTO) 0.4 (0.2-0.8); MONOCYTES % 9.2 % (4.4-11.3); NEUTROPHILS # (AUTO) 2.3 (2.1-6.9); NEUTROPHILS % 59.4 % (38.7-80.0); PLATELET COUNT 202 x10e3/uL (140-360); RED BLOOD COUNT 3.75 x10e6/uL (4.3-5.7); RED CELL DISTRIBUTION WIDTH 16.1 % (11.7-14.4)
[2018-01-03 05:14] LABS: ALANINE AMINOTRANSFERASE 9 IU/L (0-55); ALBUMIN 3.3 g/dL (3.5-5.0); ALBUMIN/GLOBULIN RATIO 1.3 (0.8-2.0); ALKALINE PHOSPHATASE 74 IU/L (40-150); ANION GAP 12.1 mmol/L (8-16); BLOOD UREA NITROGEN 16 mg/dL (7-26); BUN/CREATININE RATIO 20 (6-25); CALCIUM 8.6 mg/dL (8.4-10.2); CARBON DIOXIDE 24 mmol/L (22-29); CHLORIDE 107 mmol/L (98-107); CHOL/HDL RATIO 4.8 (3.9-4.7); CHOLESTEROL 181 MD/DL (0-199); CREATININE, SERUM 0.81 mg/dL (0.72-1.25); EST GLOMERULAR FILTRATION RATE > 60 ML/MIN (60-); GLUCOSE 94 mg/dL (74-118); HDL CHOLESTEROL 38 MG/DL (40-60); LDL CHOLESTEROL 123 MG/DL (60-130); POTASSIUM 4.1 mmol/L (3.5-5.1); SODIUM 139 mmol/L (136-145); TRIGLYCERIDES 101 MG/DL (0-149)
[2018-01-03 05:23] LABS: CREATINE KINASE MB 4.3 ng/mL (0-5.0)
[2018-01-03] MEDS: PANTOPRAZOL 40MG/SOD CHL 0.9% 50 ML IV SCH ×4 (05:28→20:44)
[2018-01-03] MEDS: SUCRALFATE 1 GM/10 ML SUSP PO SCH ×3 (07:26→16:30)
[2018-01-03] MEDS ORDERED: FENTANYL 50 MCG/HR PATCH TD SCH ×2 (07:30→09:00)
[2018-01-03] MEDS: ENOXAPARIN INJ 80 MG/0.8 ML SYR SC SCH ×2 (07:59→20:45)
[2018-01-03] MEDS ORDERED: KETOROLAC TROMETHAMINE 30 MG/ML VIAL IV PRN ×2 (08:00→14:00)
[2018-01-03] MEDS: OXYBUTYNIN CHLORIDE 5 MG TAB PO SCH (08:02)
[2018-01-03] MEDS: ASPIRIN 325 MG TAB PO SCH (08:02)
[2018-01-03] MEDS: BACLOFEN 10 MG TAB PO SCH ×3 (08:03→20:43)
[2018-01-03] MEDS: FINASTERIDE 5 MG TAB PO SCH (08:03)
[2018-01-03] MEDS: TAMSULOSIN HCL 0.4 MG CAP PO SCH (08:03)
[2018-01-03] MEDS: TRAMADOL HCL 50 MG TAB PO PRN ×2 (08:04→17:22)
--- NOTE | 2018-01-03 08:21 | History and Physical ---
PRIMARY CARE PHYSICIAN: Unknown CHIEF COMPLAINT: Fever and joint pains. HISTORY OF PRESENT ILLNESS: This is a 77-year-old man who recently had EGD and duodenal stricture dilation on December 28, 2017, now developing fever and joint pain. Was found to have elevated troponins. Admitted to the ICU for management. The patient is confused at this time, and unable to provide any history. Troponin peaked at 0.649 and now going down to 0.477. The patient was admitted to the ICU for close monitoring and management. No further history is available at this time. PAST MEDICAL HISTORY: Asthma, duodenal stricture, status post dilatation on December 28, 2017, hypertension, chronic pain syndrome, carotid plaque in the right carotid bulb, rheumatoid arthritis, mild anemia, peptic ulcer disease, old lacunar infarct, altered mental status, BPH. PAST SURGICAL HISTORY: Shoulder and esophageal dilatation, multiple knee surgeries, and neck fracture. ALLERGIES: PER ELECTRONIC MEDICAL RECORD. FAMILY HISTORY/SOCIAL HISTORY: No alcohol, illicitis or cigarettes. The patient is . MEDICATIONS: Per electronic medical record. REVIEW OF SYSTEMS: Denies any dizziness, chest pain, shortness of breath, fever, chills, sweats, nausea, vomiting, or diarrhea at this time. PHYSICAL EXAMINATION VITAL SIGNS: Have been reviewed. GENERAL: A tired-appearing man resting in bed. HEENT: Anicteric. Pupils respond to light. No oral lesions. CARDIOVASCULAR: Normal S1 and S2. LUNGS: Moderate breath sounds. ABDOMEN: Soft, nontender and nondistended. EXTREMITIES: No edema or calf tenderness. NEUROLOGICAL: He is alert and oriented times 2. He moves all extremities. SKIN: Dry. PSYCHIATRIC: Flat affect. LABS: Reviewed. MEDICATIONS: Reviewed. ASSESSMENT: A 77-year-old man with: 1. Possibly [id number] myocardial infarction. 2. Hypertension. 3. Peptic ulcer disease. 4. Rheumatoid arthritis. 5. Hyperlipidemia. 6. BPH. 7. Asthma. 8. History of duodenal stricture. 9. Bradycardia. 10. Overweight state. PLAN 1. Will add aspirin. Will continue with losartan. Will add pravastatin as well. Will hold off on Lovenox at this time. Defer to cardiology service. LDL is 123. His triglycerides were 101. 2. Start isosorbide dinitrate for uncontrolled blood pressure. He does have mild bradycardia. 3. Continue IV PPI per GI services. 4. Continue pain medications for chronic pain syndrome. 5. Continue sucralfate and Pepcid. 6. Continue other home medications. 7. Use SCDs for DVT prophylaxis. 8. Monitor closely in the ICU. Critical care time more than 35 minutes. Job#: [id number] RI
[2018-01-03] MEDS ORDERED: PANTOPRAZOLE SOD 40 MG TABEC PO SCH (09:00)
[2018-01-03] MEDS: VENLAFAXINE HCL 75 MG TAB PO SCH (09:23)
[2018-01-03] MEDS: ISOSORBIDE DINITRATE 20 MG TAB PO SCH ×2 (09:25→17:00)
[2018-01-03] MEDS: LOSARTAN POTASSIUM 25 MG TAB PO SCH (17:00)
[2018-01-03] MEDS: SIMVASTATIN 20 MG TAB PO SCH (20:43)
[2018-01-03] MEDS: TERAZOSIN HCL 1 MG CAP PO SCH (20:45)
[2018-01-03] MEDS: ONDANSETRON HCL INJ 2 MG/ML VIAL IV PRN (20:53)
[2018-01-04] VITALS (8 sets, daily range): BP systolic 143–172; BP diastolic 76–96
[2018-01-04] MEDS: PANTOPRAZOL 40MG/SOD CHL 0.9% 50 ML IV SCH ×6 (00:45→21:50)
[2018-01-04] MEDS: FAMOTIDINE 20 MG/2 ML VIAL IV SCH ×2 (04:15→17:20)
[2018-01-04] MEDS: TRAMADOL HCL 50 MG TAB PO PRN ×2 (05:03→12:25)
[2018-01-04] MEDS: VENLAFAXINE HCL 75 MG TAB PO SCH (09:00)
[2018-01-04] MEDS: ISOSORBIDE DINITRATE 20 MG TAB PO SCH ×2 (09:00→17:35)
[2018-01-04] MEDS: ENOXAPARIN INJ 80 MG/0.8 ML SYR SC SCH ×2 (09:00→21:15)
[2018-01-04] MEDS: ASPIRIN 325 MG TAB PO SCH (09:00)
[2018-01-04] MEDS: OXYBUTYNIN CHLORIDE 5 MG TAB PO SCH (09:00)
[2018-01-04] MEDS: FINASTERIDE 5 MG TAB PO SCH (09:00)
[2018-01-04] MEDS: BACLOFEN 10 MG TAB PO SCH ×3 (09:00→21:15)
[2018-01-04] MEDS: LOSARTAN POTASSIUM 25 MG TAB PO SCH ×2 (09:00→17:35)
[2018-01-04] MEDS: TAMSULOSIN HCL 0.4 MG CAP PO SCH (09:00)
[2018-01-04] MEDS: SUCRALFATE 1 GM/10 ML SUSP PO SCH ×3 (09:00→17:20)
[2018-01-04] MEDS: MORPHINE SULFATE 2 MG/ML SYR IV PRN ×2 (17:35→21:50)
[2018-01-04] MEDS: ONDANSETRON HCL INJ 2 MG/ML VIAL IV PRN (17:36)
[2018-01-04] MEDS: SIMVASTATIN 20 MG TAB PO SCH (21:15)
[2018-01-04] MEDS: TERAZOSIN HCL 1 MG CAP PO SCH (21:15)
[2018-01-05 00:12] VITALS: BP 165/97
[2018-01-05] MEDS: TRAMADOL HCL 50 MG TAB PO PRN ×2 (00:47→11:17)
[2018-01-05] MEDS: PANTOPRAZOL 40MG/SOD CHL 0.9% 50 ML IV SCH ×2 (03:00→08:26)
[2018-01-05] MEDS: FAMOTIDINE 20 MG/2 ML VIAL IV SCH (03:00)
[2018-01-05 05:57] VITALS: BP 190/119
[2018-01-05 06:20] VITALS: BP 157/97
[2018-01-05] MEDS: ONDANSETRON HCL INJ 2 MG/ML VIAL IV PRN (06:23)
[2018-01-05] MEDS: MORPHINE SULFATE 2 MG/ML SYR IV PRN (06:24)
[2018-01-05 08:21] VITALS: BP 182/111
[2018-01-05] MEDS: SUCRALFATE 1 GM/10 ML SUSP PO SCH ×2 (08:45→12:38)
[2018-01-05] MEDS: LOSARTAN POTASSIUM 25 MG TAB PO SCH (09:33)
[2018-01-05] MEDS: TAMSULOSIN HCL 0.4 MG CAP PO SCH (09:33)
[2018-01-05] MEDS: ENOXAPARIN INJ 80 MG/0.8 ML SYR SC SCH (09:33)
[2018-01-05] MEDS: ISOSORBIDE DINITRATE 20 MG TAB PO SCH (09:33)
[2018-01-05] MEDS: ASPIRIN 325 MG TAB PO SCH (09:33)
[2018-01-05] MEDS: OXYBUTYNIN CHLORIDE 5 MG TAB PO SCH (09:33)
[2018-01-05] MEDS: BACLOFEN 10 MG TAB PO SCH (09:33)
[2018-01-05] MEDS: FINASTERIDE 5 MG TAB PO SCH (09:33)
[2018-01-05] MEDS: VENLAFAXINE HCL 75 MG TAB PO SCH (09:33)
[2018-01-05] MEDS ORDERED: ISOSORBIDE DINI20 MG PO (10:37)
[2018-01-05] MEDS ORDERED: SIMVASTATIN20 MG PO (10:37)
[2018-01-05] MEDS ORDERED: ASPIRIN325 MG PO (10:37)
[2018-01-05] MEDS ORDERED: METOPROLOL TART25 MG PO (10:52)
[2018-01-05] MEDS ORDERED: METOPROLOL TARTRATE 25 MG TAB PO SCH (11:00)
[2018-01-05 12:08] VITALS: BP 115/72
--- NOTE | 2018-01-07 23:54 | Progress Note ---
DATE: January 04, 2018 TIME: 7 a.m. OVERNIGHT: Troponin up 0.69. REVIEW OF SYSTEMS: Denies any dizziness, chest pain, shortness of breath, fever, chills, sweats, nausea, vomiting, diarrhea. PHYSICAL EXAMINATION: VITAL SIGNS: Reviewed. GENERAL APPEARANCE: Tired-appearing man resting in bed. HEENT: Anicteric. CARDIOVASCULAR: Normal S1 and S2. LUNGS: Moderate breath sounds. ABDOMEN: Soft, nontender, nondistended. EXTREMITIES: No edema or calf tenderness. NEUROLOGICAL: Alert and appropriate x2. Moving all extremities. SKIN: Dry. PSYCHIATRIC: Flat affect. LABS: Reviewed. MEDICATIONS: Reviewed. ASSESSMENT: A 77-year-old man. 1. Elevated cardiac enzymes. 2. Hypertension. 3. Peptic ulcer disease. 4. Rheumatoid arthritis. 5. Hyperlipidemia. 6. Benign prostatic hypertrophy. 7. Asthma. 8. History of duodenal stricture. 9. Bradycardia. 10. Overweight state. PLAN: 1. Continue aspirin. 2. Continue blood pressure medicines. 3. Continue statins. 4. Follow up cardiology recommendations. Job#: [id number]
--- NOTE | 2018-01-08 00:05 | Discharge Summary ---
PRINCIPAL DIAGNOSES 1. Elevated troponin without acute coronary syndrome. 2. Peptic ulcer disease. 3. Rheumatoid arthritis. 4. Hyperlipidemia. 5. BPH. 6. Asthma. 7. Bradycardia. 8. Overweight state. SECONDARY DIAGNOSES 1. Duodenal ulcer. 2. Hypertension. CHIEF COMPLAINT: Fever and joint pain. HISTORY OF PRESENT ILLNESS: A 77-year-old male with fever and joint pain. Please refer to H and P for further details. HOSPITAL COURSE: History of elevated troponin, but this was not acute coronary syndrome. Cardiology evaluated the patient. Had hypertension and hyperlipidemia, treated with medication regimen. Peptic ulcer disease, treated with regimen. Patient also had BPH, and bradycardia, overweight state. Patient did well. Recommended for continued medical management and need to follow up with cardiology as outpatient. DISCHARGE MEDICATION: Per electronic medical record. FOLLOWUP 1. Primary care doctor in 1 week. 2. Cardiology in 2 weeks. CONDITION ON DISCHARGE: Stable. DISCHARGE LOCATION: Home. Job#: [id number] CQ
== END 2018-01-05 15:15 | disposition home or self-care (01) | DRG 280 ==
LOC: ER 11:25 → ERHOLD 15:51 → ICU 21:21 → MED/SURG2 01-03 10:44
PROVIDERS: ADMIT Internal Medicine Cardiovascular Disease; ATTEND Internal Medicine
DX: I21.4 Non-ST elevation (NSTEMI) myocardial infarction (principal); G92 Toxic encephalopathy; K31.5 Obstruction of duodenum; M19.90 Unspecified osteoarthritis, unspecified site; N40.0 Benign prostatic hyperplasia without lower urinary tract symptoms; R00.1 Bradycardia, unspecified; R74.8 Abnormal levels of other serum enzymes; M06.9 Rheumatoid arthritis, unspecified; K26.9 Duodenal ulcer, unspecified as acute or chronic, without hemorrhage or perforation; I10 Essential (primary) hypertension; J45.909 Unspecified asthma, uncomplicated; E66.3 Overweight; Z68.25 Body mass index [BMI] 25.0-25.9, adult; G89.4 Chronic pain syndrome; E78.5 Hyperlipidemia, unspecified; Z85.51 Personal history of malignant neoplasm of bladder; Z86.73 Personal history of transient ischemic attack (TIA), and cerebral infarction without residual deficits; I65.21 Occlusion and stenosis of right carotid artery
CPT/HCPCS: 36415; 71045; 74177; 80053; 80061; 81001; 82550; 82553; 83690; 83880; 84484; 85025; 85610; 85730; 87040; 87086; 93005; 96361; 97139; 99284; J1650; J1885; J2270; J2405; J7030; Q9967

== ENCOUNTER → 2018-01-11 | Day surgery (SDC) | payer MEDICARE, BC ==
[~2018-01-11] MED LIST changes: +ASPIRIN325 MG PO; +FENTANYL CITRATE/PF 100MCG/2 ML INJ ONE; +HYDRALAZINE HCL 20 MG/ML VIAL ONE; +ISOSORBIDE DINI20 MG PO; +LABETALOL HCL 20 ML ONE; +METOPROLOL TART25 MG PO; +MIDAZOLAM HCL 2 MG/2 ML VIAL ONE; +SIMVASTATIN20 MG PO
[2018-01-11 17:45] VITALS: BP 135/82
--- NOTE | 2018-02-25 04:25 | Operative Report ---
DATE OF PROCEDURE: January 11, 2018 REFERRING PHYSICIAN: Dr. Randall Mosley PROCEDURE PERFORMED: Esophagogastroduodenoscopy with biopsies. INDICATIONS FOR EGD: Recurrent nausea and vomiting, history of duodenal stricture. MEDICATION: Patient was done under MAC. Please see anesthesiologist's note. PROCEDURE: Patient in left lateral decubitus position. Flexible fiberoptic Olympus gastroscope was introduced into the esophagus under direct visualization without any difficulty. There was some patchy erythema noted in distal esophagus. The scope was then advanced with ease into the stomach, traversing a hiatal hernia. The mucosa overlying the antrum and the body revealed some patchy erythema and [id number] edema and biopsies were obtained and sent to stain for H. pylori. Pylorus appeared to be of normal contour and shape, was intubated with ease and the scope was advanced into the duodenal bulb. The previously described stricture appeared open and was traversed with ease with the scope to the 2nd portion of the duodenum. The scope was then withdrawn slowly and the mucosa overlying the proximal 2nd portion appeared to be within normal limits. It was then withdrawn back into the stomach and retroflexed. Mucosa overlying the fundus appeared to be within normal limits. The previously described hiatal hernia was also noted in a retroflexed position. The scope was then straightened out. The stomach was decompressed. The scope was subsequently withdrawn. Patient tolerated the procedure well. IMPRESSIONS 1. Distal esophagitis. 2. Hiatal hernia. 3. Gastritis, biopsied. Biopsy sent to stain for Helicobacter pylori. 4. Previously described duodenal stricture appeared open and was traversed with ease with a scope. PLAN 1. Follow up histology. 2. Continue Protonix 40 mg 1 p.o. a.c. b.i.d. 3. Carafate 1 g p.o. a.c. t.i.d. and nightly. 4. Add Reglan 10 mg 1 p.o. a.c. t.i.d. nightly. Job#: [id number] CQ
== END | disposition home or self-care (01) ==
LOC: OR 13:53
PROVIDERS: ATTEND Internal Medicine Gastroenterology
DX: K29.70 Gastritis, unspecified, without bleeding (principal); K44.9 Diaphragmatic hernia without obstruction or gangrene; K20.9 Esophagitis, unspecified; K21.9 Gastro-esophageal reflux disease without esophagitis; K25.9 Gastric ulcer, unspecified as acute or chronic, without hemorrhage or perforation; K59.00 Constipation, unspecified; I10 Essential (primary) hypertension; J45.909 Unspecified asthma, uncomplicated; E78.5 Hyperlipidemia, unspecified; R53.1 Weakness; M54.9 Dorsalgia, unspecified; M54.2 Cervicalgia; F32.9 Major depressive disorder, single episode, unspecified; F41.9 Anxiety disorder, unspecified; Z86.2 Personal history of diseases of the blood and blood-forming organs and certain disorders involving the immune mechanism; Z87.01 Personal history of pneumonia (recurrent); Z96.651 Presence of right artificial knee joint; Z80.0 Family history of malignant neoplasm of digestive organs
CPT/HCPCS: 43239; 88305; 88312; J0360; J2250; J3490

== ENCOUNTER → 2018-05-30 | Day surgery (SDC) | payer MEDICARE, BC ==
[2018-05-29 12:34] LABS: BASOPHILS # (AUTO) 0.1 (0.0-0.1); BASOPHILS % 1.1 % (0.0-1.0); EOSINOPHILS # (AUTO) 0.2 (0.0-0.4); EOSINOPHILS % 4.2 % (0.0-6.0); HEMATOCRIT 38.6 % (38.2-49.6); HEMOGLOBIN 12.1 g/dL (14.0-18.0); LYMPHOCYTES # (AUTO) 0.8 (1.0-3.2); MEAN CORPUSCULAR HEMOGLOBIN 27.2 pg (28-32); MEAN CORPUSCULAR HGB CONC 31.3 g/dL (31-35); MEAN CORPUSCULAR VOLUME 86.7 fL (81-99); MONOCYTES # (AUTO) 0.4 (0.2-0.8); MONOCYTES % 8.8 % (4.4-11.3); NEUTROPHILS # (AUTO) 3.1 (2.1-6.9); NEUTROPHILS % 68.5 % (38.7-80.0); PLATELET COUNT 252 x10e3/uL (140-360); RED BLOOD COUNT 4.45 x10e6/uL (4.3-5.7); RED CELL DISTRIBUTION WIDTH 15.3 % (11.7-14.4)
[~2018-05-30] MED LIST changes: -LABETALOL HCL 20 ML ONE; +LABETALOL HCL 5 MG/ML 20ML VIAL ONE; +LIDOCAINE HCL 2% LOCAL INJ 5 ML SDV VIAL INJ ONE; +METOCLOPRAMIDE HCL 10 MG/2ML VIAL ONE; +PROPOFOL IV EMULSION 10 MG/ML 50 ML VIAL ONE
[2018-05-30 13:53] VITALS: BP 139/86
--- NOTE | 2018-05-30 14:28 | Operative Report ---
DATE OF PROCEDURE: May 30, 2018 REFERRING PHYSICIAN: Dr. Erika Mccord. PROCEDURE PERFORMED: Esophagogastroduodenoscopy with balloon dilatation of a duodenal stricture. INDICATIONS FOR PROCEDURE: Postprandial bloating. Nausea and vomiting. History of duodenal stricture. MEDICATION: Patient was done under MAC. Please see anesthesiologist's note. PROCEDURE: With the patient in the left lateral decubitus position, the flexible fiberoptic Olympus gastroscope was introduced into the esophagus under direct visualization without any difficulty. The esophagus overall appeared to be within normal limits. There was a short tongue of velvety red mucosa extending proximally from the GE junction, suspicious for Pan's, which was biopsied in the recent past. The scope was then advanced with ease into the stomach, traversing a small hiatal hernia. The mucosa overlying the antrum and the body revealed some patchy areas of erythema. The pylorus was of normal contour and shape, was intubated with ease, and the scope was advanced into the duodenal bulb. The previously described stricture at the junction of the bulb and the 2nd portion of the duodenum was noted, but I was able to traverse it with the scope. The mucosa overlying the proximal 2nd portion appeared to be within normal limits. The stricture was then dilated to size 18 mm per TTS balloon dilators. The scope was then withdrawn back into the stomach and retroflexed, and the previously described hiatal hernia was also noted in the retroflexed position. The scope was then straightened out. It was subsequently withdrawn. Patient tolerated the procedure well. IMPRESSION: 1. Normal esophagus. 2. 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 3. Small hiatal hernia. 4. Gastritis, mild. 5. Previously described duodenal stricture dilated to size 18 mm per TTS balloon dilators. PLAN: Continue Protonix 40 mg 1 p.o. a.c. b.i.d. and Carafate 1 gram p.o. a.c. t.i.d. and nightly and Reglan 10 mg 1 p.o. a.c. t.i.d. and nightly. Job#: [id number] EV cc:ERIKA MCCORD MD
== END | disposition home or self-care (01) ==
LOC: OR 10:10
PROVIDERS: ATTEND Internal Medicine Gastroenterology
DX: K31.5 Obstruction of duodenum (principal); K29.70 Gastritis, unspecified, without bleeding; K25.9 Gastric ulcer, unspecified as acute or chronic, without hemorrhage or perforation; K22.8 Other specified diseases of esophagus; K44.9 Diaphragmatic hernia without obstruction or gangrene; R53.1 Weakness; H91.90 Unspecified hearing loss, unspecified ear; I10 Essential (primary) hypertension; J45.909 Unspecified asthma, uncomplicated; F41.9 Anxiety disorder, unspecified; F32.9 Major depressive disorder, single episode, unspecified; Z01.810 Encounter for preprocedural cardiovascular examination; Z01.812 Encounter for preprocedural laboratory examination; Z87.01 Personal history of pneumonia (recurrent); Z80.0 Family history of malignant neoplasm of digestive organs
CPT/HCPCS: 36415; 43245; 85025; 93005; C1726; J0360; J2001; J2250; J2704; J2765; J3490; 43233

== ENCOUNTER 2018-06-22 02:37 | Emergency (ER) | payer MEDICARE, BC ==
[~2018-06-22] VITALS: Ht 190.5 cm; Wt 92.1 kg
[~2018-06-22 02:37] MED LIST changes: -FENTANYL CITRATE/PF 100MCG/2 ML INJ ONE; -HYDRALAZINE HCL 20 MG/ML VIAL ONE; -LABETALOL HCL 5 MG/ML 20ML VIAL ONE; -LIDOCAINE HCL 2% LOCAL INJ 5 ML SDV VIAL INJ ONE; -METOCLOPRAMIDE HCL 10 MG/2ML VIAL ONE; -MIDAZOLAM HCL 2 MG/2 ML VIAL ONE; -PROPOFOL IV EMULSION 10 MG/ML 50 ML VIAL ONE
[2018-06-22] MEDS ORDERED: FINASTERIDE5 MG PO (02:53)
[2018-06-22] MEDS ORDERED: CYMBALTA30 MG PO (02:53)
[2018-06-22] MEDS ORDERED: METOCLOPRAMIDE10 MG PO (02:53)
--- NOTE | 2018-06-22 03:00 | NUR ---
ER NOTIFIED OF PT'S BP, NO NEW ORDERS AT THIS TIME
--- NOTE | 2018-06-22 04:50 | Diagnostic Imaging Report ---
Examination: CT BRAIN WITHOUT CONTRAST History:Fall with head injury. Comparison studies:Head CT dated 02/28/2017. Technique: Axial images were obtained from the skull base to the vertex. Coronal and sagittal images reconstructed from the axial data. Intravenous contrast: None Findings: Scalp: No abnormalities. Bones: No fractures, blastic or lytic lesions. Brain sulci: Appropriate for age. Ventricles: Normal in size and configuration. No hydrocephalus. Extra-axial space: No abnormalities. Parenchyma: There are mild confluent areas of hypoattenuation in the periventricular and subcortical white matter, nonspecific. Chronic infarcts are demonstrated in the, inferior right putamen anterior limb of the right internal capsule and left striatocapsular region. No masses, hemorrhage, or acute cortical based vascular insults. Sellar/suprasellar region: Partially CSF filled. Craniocervical junction: Patent foramen magnum. No Chiari one malformation. Incidental findings: Large retention cyst in the right maxillary sinus. Impression: 1. No acute intracranial abnormalities when compared to prior head CT dated 02/28/2017. 2. Mild chronic microvascular ischemic change. 3. Chronic lacunar infarcts, as above. Signed by: Dr. Kerry Sanders M.D. on 06/22/2018 4:47 AM
--- NOTE | 2018-06-22 04:54 | Diagnostic Imaging Report ---
Examination: CT Face without Contrast History:Fall with face injury. Comparison studies: None Technique: Axial images were obtained through the maxillofacial region. Coronal and sagittal reconstructions obtained from the axial data. Dose modulation, iterative reconstruction, and/or weight based adjustment of the mA/kV was utilized to reduce the radiation dose to as low as reasonably achievable. Intravenous contrast: None Findings: Soft tissues: Atherosclerotic calcification of the bilateral carotid bifurcations. Bones: No fractures. Severe right and mild left degenerative narrowing of the TMJ. Orbits: Globes: Intact Extra or intraconal abnormalities: None. Paranasal sinuses: Large retention cyst in the right maxillary sinus. IMPRESSION: No acute facial abnormality. Signed by: Dr. Kerry Sanders M.D. on 06/22/2018 4:50 AM
--- NOTE | 2018-06-22 05:02 | Diagnostic Imaging Report ---
Examination: CT CERVICAL SPINE WITHOUT CONTRAST HISTORY:Neck pain and injury after fall. COMPARISON:None. TECHNIQUE: Multidetector helical axial images were obtained without contrast from the foramen magnum to T1. Coronal and sagittal reformatted images were done. Bone and soft tissue windows were evaluated. Dose modulation, iterative reconstruction, and/or weight based adjustment of the mA/kV was utilized to reduce the radiation dose to as low as reasonably achievable. FINDINGS: Alignment:Normal alignment and lordosis. Vertebrae: Normal height and density. No acute fracture, infection or neoplasm. There is a well corticated lucency through the base of the dens with posterior occiput to C2 fixation. There is lucency surrounding the screws through the spinous process and laminae of C2 and the left screw projects into the posterior aspect of the spinal canal. Disc space heights: Diffuse severe narrowing. Caliber of spinal canal: Developmentally normal. Posterior fossa and craniocervical junction: Foramen magnum patent. No Chiari 1 malformation. Soft tissues: No abnormality. Degenerative changes: Diffuse disc osteophyte complexes from C3-C4 through C5-C6 without canal stenosis. Visualized lung apices: No abnormalities. IMPRESSION: 1. No acute abnormalities. 2. 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 Revision may be necessary and therefore, consultation with spine surgeon should be obtained. Signed by: Dr. Kerry Sanders M.D. on 06/22/2018 4:59 AM
[2018-06-22 05:39] LABS: BASOPHILS % 0.5 % (0.0-1.0); EOSINOPHILS # (AUTO) 0.1 (0.0-0.4); HEMOGLOBIN 11.9 g/dL (14.0-18.0); LYMPHOCYTES # (AUTO) 0.7 (1.0-3.2); LYMPHOCYTES % 9.5 % (18.0-39.1); MEAN CORPUSCULAR HEMOGLOBIN 27.2 pg (28-32); MEAN CORPUSCULAR HGB CONC 31.3 g/dL (31-35); MONOCYTES # (AUTO) 0.4 (0.2-0.8); MONOCYTES % 5.6 % (4.4-11.3); NEUTROPHILS # (AUTO) 6.4 (2.1-6.9); PLATELET COUNT 208 x10e3/uL (140-360); RED BLOOD COUNT 4.37 x10e6/uL (4.3-5.7); RED CELL DISTRIBUTION WIDTH 14.8 % (11.7-14.4)
[2018-06-22 05:51] LABS: INR 0.92; PROTHROMBIN TIME 12.8 seconds (11.9-14.5)
[2018-06-22 05:52] LABS: PARTIAL THROMBOPLASTIN TIME 30.5 seconds (23.8-35.5)
[2018-06-22 05:58] LABS: ALANINE AMINOTRANSFERASE 17 IU/L (0-55); ALBUMIN 3.9 g/dL (3.5-5.0); ALBUMIN/GLOBULIN RATIO 1.3 (0.8-2.0); ALKALINE PHOSPHATASE 92 IU/L (40-150); ANION GAP 13.3 mmol/L (8-16); BLOOD UREA NITROGEN 22 mg/dL (7-26); BUN/CREATININE RATIO 26 (6-25); CALCIUM 9.5 mg/dL (8.4-10.2); CARBON DIOXIDE 23 mmol/L (22-29); CHLORIDE 108 mmol/L (98-107); CREATININE, SERUM 0.86 mg/dL (0.72-1.25); EST GLOMERULAR FILTRATION RATE > 60 ML/MIN (60-); GLUCOSE 113 mg/dL (74-118); POTASSIUM 4.3 mmol/L (3.5-5.1); SODIUM 140 mmol/L (136-145)
--- NOTE | 2018-06-22 06:20 | NUR ---
TRANSFER INITIATED WITH PHONE CALL TO TRANSFER CENTER AT [facility]. S/W MELISSA BALLARD AT TRANSFER CENTER.
--- NOTE | 2018-06-22 06:40 | NUR ---
DR. HOWELL S/W DR. ALEX
[2018-06-22] MEDS ORDERED: HYDRALAZINE HCL 20 MG/ML VIAL IV STA (06:50)
--- NOTE | 2018-06-22 06:52 | NUR ---
DOC TO DOC CALL INITIATED.
--- NOTE | 2018-06-22 06:57 | NUR ---
PER DR. HOWELL, S/W DR. FREEDMAN. EXTENSION PROVIDED FOR CALL AT [phone] FOR ORTHO/SPINE
--- NOTE | 2018-06-22 07:15 | NUR ---
WALKING ROUNDS AND REPORT COMPLETED WITH BRUNILDA SORIANO AT THIS TIME.
--- NOTE | 2018-06-22 07:31 | NUR ---
CALLED REPORT TO SLOAN @ [phone] [facility]
--- NOTE | 2018-06-22 08:09 | NUR ---
APPROVAL GIVEN TO TRANSFER PT TO [facility] BY NOE BARRIENTOS RN CHASSIS INSPECTOR @ [phone]. PT GOING TO THE ER, ACCEPTING DOCTOR IS GERMAINE WEISS MD. MOT HAS BEEN SIGNED BY PT, AT BEDSIDE. [facility] CALLED TO TRANSPORT PT TO [facility]. PT GOING TO ER. SHAHZAD PASTRANA RN PRIMARY NURSE OF THIS.
[2018-06-22 08:37] VITALS: BP 141/77
[2018-06-22] MEDS ORDERED: BACITRACIN/POLYMYXIN 30 GM OINT TP ONE (09:30)
[2018-06-22] MEDS ORDERED: HYDROMORPHONE 2MG/ML 2 MG/ML ML IV ONE (11:15)
== END 2018-06-22 10:00 | disposition other institution (70) ==
LOC: ER 02:37
DX: S00.81XA Abrasion of other part of head, initial encounter (principal); S00.31XA Abrasion of nose, initial encounter; W01.0XXA Fall on same level from slipping, tripping and stumbling without subsequent striking against object, initial encounter; Y93.01 Activity, walking, marching and hiking; Y92.008 Other place in unspecified non-institutional (private) residence as the place of occurrence of the external cause; I10 Essential (primary) hypertension; E78.5 Hyperlipidemia, unspecified; J45.909 Unspecified asthma, uncomplicated; I25.2 Old myocardial infarction; Z86.73 Personal history of transient ischemic attack (TIA), and cerebral infarction without residual deficits
CPT/HCPCS: 36415; 70450; 70486; 72125; 80053; 85025; 85610; 85730; 93005; 99285; J0360; J1170

== ENCOUNTER → 2021-07-29 | Day surgery (SDC) | payer MEDICARE, BC ==
[2021-07-26 12:49] LABS: BASOPHILS # (AUTO) 0.1 (0.0-0.1); BASOPHILS % 1.1 % (0.0-1.0); EOSINOPHILS # (AUTO) 0.2 (0.0-0.4); EOSINOPHILS % 3.6 % (0.0-6.0); HEMATOCRIT 34.7 % (38.2-49.6); HEMOGLOBIN 10.5 g/dL (14.0-18.0); LYMPHOCYTES # (AUTO) 1.1 (1.0-3.2); LYMPHOCYTES % 20.5 % (18.0-39.1); MEAN CORPUSCULAR HEMOGLOBIN 25.1 pg (28-32); MEAN CORPUSCULAR HGB CONC 30.3 g/dL (31-35); MONOCYTES # (AUTO) 0.4 (0.2-0.8); MONOCYTES % 7.9 % (4.4-11.3); NEUTROPHILS # (AUTO) 3.7 (2.1-6.9); NEUTROPHILS % 66.7 % (38.7-80.0); PLATELET COUNT 204 x10e3/uL (140-360); RED BLOOD COUNT 4.18 x10e6/uL (4.3-5.7); RED CELL DISTRIBUTION WIDTH 17.8 % (11.7-14.4)
[~2021-07-29] MED LIST changes: +ALBUTEROL INH; +AMLODIPINE BESYL5 MG PO; +ARICEPT5 MG PO; +CRESTOR10 MG PO; +CYMBALTA30 MG PO; +EPHEDRINE SULFATE INJ 50 MG/ML VIAL ONE; +FINASTERIDE1 MG PO; +FUROSEMIDE40 MG PO; +HYOSCYAMINE SULFATE 0.5 MG/ML INJ ONE; +METOCLOPRAMIDE10 MG PO; +MIDAZOLAM HCL 2 MG/2 ML VIAL ONE; +MULTI-VITAMIN1 EACH PO; +OXYCODONE HCL20 M1 PO; +PROPOFOL IV EMULSION 10 MG/ML 20 ML VIAL ONE; +VESICARE5 MG PO
[2021-07-29 14:05] VITALS: BP 135/78
[2021-07-29 14:29] LABS: % IRON SATURATION 8 % (15-50); IRON 32 ug/dL (65-175); TOTAL IRON BINDING CAPACITY 409 ug/dL (261-478); TRANSFERRIN 292 mg/dL (174-364)
== END | disposition home or self-care (01) ==
LOC: OR 07-28 12:15
PROVIDERS: ATTEND Internal Medicine Gastroenterology
DX: D64.9 Anemia, unspecified (principal); Z86.010 Personal history of colon polyps; K29.70 Gastritis, unspecified, without bleeding; K22.70 Barrett's esophagus without dysplasia; K44.9 Diaphragmatic hernia without obstruction or gangrene; Z87.11 Personal history of peptic ulcer disease; K59.00 Constipation, unspecified; K64.8 Other hemorrhoids; Z71.3 Dietary counseling and surveillance; J45.909 Unspecified asthma, uncomplicated; I10 Essential (primary) hypertension; I49.3 Ventricular premature depolarization; S14.109A Unspecified injury at unspecified level of cervical spinal cord, initial encounter; X58.XXXA Exposure to other specified factors, initial encounter; Z01.810 Encounter for preprocedural cardiovascular examination; Z01.812 Encounter for preprocedural laboratory examination; Z20.822 Contact with and (suspected) exposure to COVID-19; Z79.899 Other long term (current) drug therapy; Z68.26 Body mass index [BMI] 26.0-26.9, adult; Z86.73 Personal history of transient ischemic attack (TIA), and cerebral infarction without residual deficits; Z80.0 Family history of malignant neoplasm of digestive organs
CPT/HCPCS: 36415 ×2; 43239; 45378; 82607; 82746; 83540; 84466; 85025; 85045; 88305; 88312; 88342; 93005; J1980; J2250; J2704; U0002

== ENCOUNTER → 2021-08-17 | Outpatient (CLI) | payer MEDICARE, BC ==
[~2021-08-17] MED LIST changes: -EPHEDRINE SULFATE INJ 50 MG/ML VIAL ONE; -HYOSCYAMINE SULFATE 0.5 MG/ML INJ ONE; -MIDAZOLAM HCL 2 MG/2 ML VIAL ONE; -PROPOFOL IV EMULSION 10 MG/ML 20 ML VIAL ONE
== END ==
LOC: DX 09:25
PROVIDERS: ATTEND Internal Medicine Gastroenterology
DX: D64.9 Anemia, unspecified (principal); Z20.822 Contact with and (suspected) exposure to COVID-19
CPT/HCPCS: 74250; U0002

== ENCOUNTER → 2022-06-23 | Outpatient (CLI) | payer MEDICARE, BC | LOC: MRI 10:54 | PROVIDERS: ATTEND Physician Assistant | DX: G45.9 Transient cerebral ischemic attack, unspecified (principal); R41.3 Other amnesia | CPT/HCPCS: 70551 ==

== ENCOUNTER 2023-04-27 10:30 | Inpatient (IN) | payer MEDICARE, BC ==
[~2023-04-27] VITALS: Ht 190.5 cm; Wt 92.1 kg
[2023-04-27] VITALS (9 sets, daily range): BP systolic 137–158; BP diastolic 95–133; PULSE 76–155; RESP 16–30; TEMP 97.6–98.6; O2SAT 93–98
[2023-04-27 11:57] LABS: BASOPHILS # (AUTO) 0.1 (0.0-0.1); BASOPHILS % 0.9 % (0.0-1.0); EOSINOPHILS % 0.6 % (0.0-6.0); HEMATOCRIT 35.2 % (38.2-49.6); HEMOGLOBIN 10.5 g/dL (14.0-18.0); LYMPHOCYTES # (AUTO) 0.5 (1.0-3.2); LYMPHOCYTES % 8.3 % (18.0-39.1); MEAN CORPUSCULAR HEMOGLOBIN 25.6 pg (28-32); MEAN CORPUSCULAR HGB CONC 29.8 g/dL (31-35); MEAN CORPUSCULAR VOLUME 85.9 fL (81-99); MONOCYTES # (AUTO) 0.4 (0.2-0.8); MONOCYTES % 6.3 % (4.4-11.3); NEUTROPHILS # (AUTO) 5.5 (2.1-6.9); NEUTROPHILS % 83.6 % (38.7-80.0); PLATELET COUNT 219 x10e3/uL (140-360); WHITE BLOOD COUNT 6.53 x10e3/uL (4.8-10.8)
[2023-04-27] MEDS ORDERED: SODIUM CHLORIDE 0.9% 1000ML 1,000 ML IV STA (11:58)
[2023-04-27] MEDS ORDERED: SODIUM CHLORIDE 0.9% IV SCH (12:00)
[2023-04-27 12:10] LABS: ALBUMIN 4.2 g/dL (3.5-5.0); ALBUMIN/GLOBULIN RATIO 1.4 (0.8-2.0); ANION GAP 12.6 mmol/L (8-16); CALCIUM 8.9 mg/dL (8.4-10.2); CREATININE, SERUM 0.88 mg/dL (0.72-1.25); POTASSIUM 3.6 mmol/L (3.5-5.1); TOTAL PROTEIN 7.3 g/dL (6.5-8.1)
[2023-04-27 12:16] LABS: INR 1.06; PARTIAL THROMBOPLASTIN TIME 29.7 seconds (23.8-35.5)
[2023-04-27] MEDS: Doxycycline IV 100 MG in SODIUM CHLORIDE 0.9% 100 ML IV SCH (13:19)
[2023-04-27] MEDS ORDERED: ALBUTEROL SULF 0.083% NEB SOLN 3 ML NEB NEB PRN (13:30)
[2023-04-27] MEDS ORDERED: SODIUM CHLORIDE 0.9% 1000ML 1,000 ML IV SCH (13:30)
[2023-04-27 14:34] LABS: THYROID STIMULATING HORMONE 1.033 uIU/mL (0.350-4.940)
[2023-04-27 17:45] LABS: TROPONIN I 0.096 ng/mL (0-0.300)
[2023-04-27] MEDS: ALBUTEROL/IPRATROPIUM 3 ML NEB NEB SCH ×3 (19:00→23:51)
[2023-04-27] MEDS: HYDRALAZINE HCL 20 MG/ML VIAL IV PRN (20:16)
[2023-04-27] MEDS: Morphine 2mg Syringe 2 MG/ML SYR IV PRN (20:17)
[2023-04-27] MEDS ORDERED: METOPROLOL TARTRATE INJ 1 MG/ML VIAL ONE (21:10)
[2023-04-27] MEDS ORDERED: DEXTROSE 5%/0.45% SOD CHL 1,000 ML IV ONE ×2 (21:15)
[2023-04-27] MEDS ORDERED: METOPROLOL TARTRATE INJ 1 MG/ML VIAL IV PRN (21:15)
[2023-04-27] MEDS ORDERED: AMIODARONE 900MG 900 MG in Premix Bag 1 BAG IV ONE (21:30)
[2023-04-27] MEDS ORDERED: METOPROLOL TARTRATE INJ 1 MG/ML VIAL IV ONE (21:45)
[2023-04-27] MEDS ORDERED: AMIODARONE 900MG 500 ML IV ONE (23:53)
[2023-04-28] VITALS (51 sets, daily range): BP systolic 105–192; BP diastolic 70–141; PULSE 94–162; RESP 18–40; TEMP 98–98.3; O2SAT 79–100
[2023-04-28] MEDS: Doxycycline IV 100 MG in SODIUM CHLORIDE 0.9% 100 ML IV SCH ×3 (00:58→23:55)
[2023-04-28] MEDS: HYDRALAZINE HCL 20 MG/ML VIAL IV PRN ×3 (01:07→20:36)
[2023-04-28 01:12] LABS: TROPONIN I 0.113 ng/mL (0-0.300)
[2023-04-28] MEDS: Morphine 2mg Syringe 2 MG/ML SYR IV PRN ×5 (02:07→23:50)
[2023-04-28] MEDS: ALBUTEROL/IPRATROPIUM 3 ML NEB NEB SCH ×3 (03:27→07:44)
[2023-04-28 06:11] LABS: BASOPHILS % 0.3 % (0.0-1.0); HEMATOCRIT 37.1 % (38.2-49.6); HEMOGLOBIN 11.1 g/dL (14.0-18.0); LYMPHOCYTES # (AUTO) 0.5 (1.0-3.2); LYMPHOCYTES % 4.9 % (18.0-39.1); MEAN CORPUSCULAR HEMOGLOBIN 25.1 pg (28-32); MEAN CORPUSCULAR HGB CONC 29.9 g/dL (31-35); MEAN CORPUSCULAR VOLUME 83.9 fL (81-99); MONOCYTES # (AUTO) 0.4 (0.2-0.8); MONOCYTES % 3.7 % (4.4-11.3); NEUTROPHILS # (AUTO) 8.5 (2.1-6.9); NEUTROPHILS % 90.4 % (38.7-80.0); PLATELET COUNT 263 x10e3/uL (140-360); RED BLOOD COUNT 4.42 x10e6/uL (4.3-5.7); RED CELL DISTRIBUTION WIDTH 18.2 % (11.7-14.4)
[2023-04-28 06:26] LABS: ALBUMIN 4.2 g/dL (3.5-5.0); ALBUMIN/GLOBULIN RATIO 1.4 (0.8-2.0); ANION GAP 16.5 mmol/L (8-16); CALCIUM 9.2 mg/dL (8.4-10.2); CREATININE, SERUM 0.79 mg/dL (0.72-1.25); POTASSIUM 3.5 mmol/L (3.5-5.1); TOTAL PROTEIN 7.3 g/dL (6.5-8.1)
[2023-04-28 07:01] LABS: TROPONIN I 0.227 ng/mL (0-0.300)
[2023-04-28] MEDS ORDERED: LABETALOL HCL 5 MG/ML 20ML VIAL IV STA (08:19)
[2023-04-28] MEDS ORDERED: IOPAMIDOL 370 MG/ML 100 ML INFUS..BTL INJ ONE (08:39)
[2023-04-28] MEDS ORDERED: SODIUM CHLORIDE 0.9% 100 ML ONE (08:39)
[2023-04-28] MEDS: PANTOPRAZOLE SOD 40 MG TABEC PO SCH ×2 (09:00→17:00)
[2023-04-28] MEDS: LOSARTAN POTASSIUM 25 MG TAB PO SCH ×2 (09:00→17:00)
[2023-04-28 09:14] LABS: ABG HCO3 24 mmol/L (22-26); ABG PCO2 46 mmHg (35-45); ABG PH 7.32 (7.35-7.45); ABG PO2 101 mmHg (80-105); ABG TCO2 25
[2023-04-28] MEDS: LEVALBUTEROL HCL SOLN NEBU 0.63 MG/3 ML NEB INH SCH ×4 (11:00→23:46)
[2023-04-28] MEDS ORDERED: FUROSEMIDE INJ 10 MG/ML 2 ML VIAL IV SCH (11:30)
[2023-04-28 15:19] LABS: CLARITY,URINE SL CLOUDY (CLEAR); COLOR,URINE YELLOW (YELLOW); GLUCOSE, URINE NEGATIVE (NEGATIVE); LEUKOCYTE ESTERASE ,URINE NEGATIVE (NEGATIVE); NITRITE,URINE NEGATIVE (NEGATIVE); PH,URINE 5.5 (5 - 7); PROTEIN,URINE DIPSTICK 2+ (NEGATIVE)
[2023-04-28 15:20] LABS: BILIRUBIN,URINE NEGATIVE (NEGATIVE); KETONES,URINE 2+ (NEGATIVE); URINE UROBILINOGEN 1 mg/dL (0.2 - 1)
[2023-04-28 15:40] LABS: BACTERIA,URINE RARE /HPF; EPITHELIAL CELLS,URINE MODERATE /LPF; RBC,URINE >50 /HPF (0-5); WBC,URINE (MAN) 0-5 /HPF (0-5)
[2023-04-28] MEDS ORDERED: AMLODIPINE BESYLATE 5 MG TAB PO SCH (17:00)
[2023-04-28] MEDS ORDERED: LABETALOL HCL 5 MG/ML 20ML VIAL IV PRN (17:30)
[2023-04-28] MEDS ORDERED: POTASSIUM CHLORIDE 20MEQ/100ML 100 ML IV ONE (17:30)
[2023-04-28] MEDS ORDERED: METHYLPREDNISOLONE SOD SUCC 125 MG/2ML VIAL IV SCH (20:00)
[2023-04-28] MEDS ORDERED: FUROSEMIDE INJ 10 MG/ML 4 ML VIAL IV ONE (20:45)
[2023-04-29] VITALS (26 sets, daily range): BP systolic 126–169; BP diastolic 80–113; PULSE 102–146; RESP 17–36; TEMP 98.2–98.8; O2SAT 86–100
[2023-04-29] MEDS: LEVALBUTEROL HCL SOLN NEBU 0.63 MG/3 ML NEB INH SCH ×6 (03:28→23:16)
[2023-04-29] MEDS: Morphine 2mg Syringe 2 MG/ML SYR IV PRN ×3 (05:18→17:05)
[2023-04-29 05:36] LABS: BASOPHILS % 0.1 % (0.0-1.0); HEMATOCRIT 36.5 % (38.2-49.6); HEMOGLOBIN 10.9 g/dL (14.0-18.0); LYMPHOCYTES # (AUTO) 0.2 (1.0-3.2); MEAN CORPUSCULAR HEMOGLOBIN 25.2 pg (28-32); MEAN CORPUSCULAR HGB CONC 29.9 g/dL (31-35); MEAN CORPUSCULAR VOLUME 84.3 fL (81-99); MONOCYTES # (AUTO) 0.2 (0.2-0.8); NEUTROPHILS # (AUTO) 7.5 (2.1-6.9); NEUTROPHILS % 94.4 % (38.7-80.0); PLATELET COUNT 232 x10e3/uL (140-360); RED BLOOD COUNT 4.33 x10e6/uL (4.3-5.7); RED CELL DISTRIBUTION WIDTH 18.6 % (11.7-14.4); WHITE BLOOD COUNT 7.93 x10e3/uL (4.8-10.8)
[2023-04-29 05:57] LABS: ALBUMIN 3.8 g/dL (3.5-5.0); ALBUMIN/GLOBULIN RATIO 1.2 (0.8-2.0); CALCIUM 9.1 mg/dL (8.4-10.2); CREATININE, SERUM 0.89 mg/dL (0.72-1.25); TOTAL PROTEIN 6.9 g/dL (6.5-8.1)
[2023-04-29 06:00] LABS: POTASSIUM 3.4 mmol/L (3.5-5.1)
[2023-04-29 06:12] LABS: ANION GAP 17.4 mmol/L (8-16)
[2023-04-29] MEDS ORDERED: AMIODARONE 900MG 900 MG in Premix Bag 1 BAG IV SCH (07:30)
[2023-04-29] MEDS ORDERED: POTASSIUM CHLORIDE 20MEQ/100ML 100 ML IV ONE ×2 (07:45→17:00)
[2023-04-29] MEDS: PANTOPRAZOLE SOD 40 MG TABEC PO SCH (09:00)
[2023-04-29] MEDS ORDERED: AMIODARONE 900MG 500 ML IV SCH (09:30)
[2023-04-29] MEDS: Doxycycline IV 100 MG in SODIUM CHLORIDE 0.9% 100 ML IV SCH (16:00)
[2023-04-30] VITALS (33 sets, daily range): BP systolic 122–163; BP diastolic 83–128; PULSE 88–116; RESP 18–32; TEMP 98.3–98.7; O2SAT 89–100
[2023-04-30] MEDS: Doxycycline IV 100 MG in SODIUM CHLORIDE 0.9% 100 ML IV SCH ×2 (00:48→11:40)
[2023-04-30] MEDS: Morphine 2mg Syringe 2 MG/ML SYR IV PRN ×3 (01:16→21:26)
[2023-04-30] MEDS: HYDRALAZINE HCL 20 MG/ML VIAL IV PRN ×2 (02:26→22:05)
[2023-04-30] MEDS: LEVALBUTEROL HCL SOLN NEBU 0.63 MG/3 ML NEB INH SCH ×6 (03:01→22:38)
[2023-04-30 06:53] LABS: BASOPHILS % 0.1 % (0.0-1.0); HEMOGLOBIN 10.7 g/dL (14.0-18.0); LYMPHOCYTES # (AUTO) 0.5 (1.0-3.2); LYMPHOCYTES % 4.5 % (18.0-39.1); MEAN CORPUSCULAR HEMOGLOBIN 25.4 pg (28-32); MEAN CORPUSCULAR HGB CONC 29.7 g/dL (31-35); MEAN CORPUSCULAR VOLUME 85.5 fL (81-99); MONOCYTES # (AUTO) 0.9 (0.2-0.8); MONOCYTES % 8.4 % (4.4-11.3); NEUTROPHILS # (AUTO) 9.2 (2.1-6.9); NEUTROPHILS % 86.5 % (38.7-80.0); PLATELET COUNT 232 x10e3/uL (140-360); RED BLOOD COUNT 4.21 x10e6/uL (4.3-5.7); RED CELL DISTRIBUTION WIDTH 18.6 % (11.7-14.4); WHITE BLOOD COUNT 10.59 x10e3/uL (4.8-10.8)
[2023-04-30 07:21] LABS: ALBUMIN 3.7 g/dL (3.5-5.0); ALBUMIN/GLOBULIN RATIO 1.3 (0.8-2.0); ANION GAP 14.6 mmol/L (8-16); CALCIUM 8.9 mg/dL (8.4-10.2); CREATININE, SERUM 0.81 mg/dL (0.72-1.25); POTASSIUM 3.6 mmol/L (3.5-5.1); TOTAL PROTEIN 6.5 g/dL (6.5-8.1)
[2023-04-30] MEDS ORDERED: POTASSIUM CHLORIDE 20MEQ/100ML 100 ML IV ONE (09:30)
[2023-04-30] MEDS ORDERED: DEXTROSE 5% 1,000 ML IV ONE (09:30)
[2023-04-30] MEDS ORDERED: METOPROLOL TARTRATE INJ 1 MG/ML VIAL IV PRN (10:30)
[2023-04-30 12:34] LABS: BODY FLUID COLOR RED; BODY FLUID TYPE PLEURAL
[2023-04-30 12:35] LABS: BODY FLUID APPEARANCE CLOUDY; RBC,BODY FLUID 44000 cells/uL; WBC,BODY FLUID 448 cells/uL
[2023-04-30 12:45] LABS: TOTAL PROTEIN,BODY FLUID 2.2 g/dL
[2023-04-30 13:04] LABS: EOSINOPHILS,BODY FLUID 1 %; LYMPHOCYTES,BODY FLUID 47 %; MONO/MACROPHG,BODY FLUID 36 %; NEUTROPHILS,BODY FLUID 11 %; OTHER CELLS,BODY FLUID 5 %; TOTAL CELLS COUNTED (DIFF) 100
[2023-04-30] MEDS: AMIODARONE 900MG 500 ML IV SCH (18:10)
[2023-05-01] VITALS (68 sets, daily range): BP systolic 128–162; BP diastolic 84–118; PULSE 86–110; RESP 17–44; TEMP 98–98.5; O2SAT 86–100
[2023-05-01] MEDS: Doxycycline IV 100 MG in SODIUM CHLORIDE 0.9% 100 ML IV SCH ×2 (00:15→12:45)
[2023-05-01] MEDS: ONDANSETRON HCL INJ 2MG/ML 2ML 2 MG/ML VIAL IV PRN (03:26)
[2023-05-01] MEDS: LEVALBUTEROL HCL SOLN NEBU 0.63 MG/3 ML NEB INH SCH ×6 (03:51→22:59)
[2023-05-01 06:39] LABS: BASOPHILS % 0.1 % (0.0-1.0); EOSINOPHILS % 0.1 % (0.0-6.0); HEMATOCRIT 34.1 % (38.2-49.6); HEMOGLOBIN 10.3 g/dL (14.0-18.0); LYMPHOCYTES # (AUTO) 0.7 (1.0-3.2); LYMPHOCYTES % 7.2 % (18.0-39.1); MEAN CORPUSCULAR HEMOGLOBIN 25.6 pg (28-32); MEAN CORPUSCULAR HGB CONC 30.2 g/dL (31-35); MEAN CORPUSCULAR VOLUME 84.6 fL (81-99); MONOCYTES # (AUTO) 0.7 (0.2-0.8); MONOCYTES % 7.4 % (4.4-11.3); NEUTROPHILS # (AUTO) 7.8 (2.1-6.9); NEUTROPHILS % 84.3 % (38.7-80.0); PLATELET COUNT 189 x10e3/uL (140-360); RED BLOOD COUNT 4.03 x10e6/uL (4.3-5.7); RED CELL DISTRIBUTION WIDTH 18.4 % (11.7-14.4)
[2023-05-01 07:36] LABS: ALBUMIN 3.5 g/dL (3.5-5.0); ALBUMIN/GLOBULIN RATIO 1.3 (0.8-2.0); ANION GAP 15.3 mmol/L (8-16); BILIRUBIN,TOTAL 1.1 mg/dL (0.2-1.2); CREATININE, SERUM 0.73 mg/dL (0.72-1.25); TOTAL PROTEIN 6.1 g/dL (6.5-8.1)
[2023-05-01 07:39] LABS: POTASSIUM 3.3 mmol/L (3.5-5.1)
[2023-05-01] MEDS ORDERED: POTASSIUM CHLORIDE 20MEQ/100ML 200 ML IV ONE (08:00)
[2023-05-01] MEDS: METOPROLOL SUCCINATE 50 MG TAB XL PO SCH (11:30)
[2023-05-01] MEDS: AMLODIPINE BESYLATE 5 MG TAB PO SCH (11:30)
[2023-05-01] MEDS: FUROSEMIDE INJ 10 MG/ML 2 ML VIAL IV SCH (11:31)
[2023-05-01] MEDS: LOSARTAN POTASSIUM 25 MG TAB PO SCH ×2 (11:32→17:22)
[2023-05-01] MEDS: AMIODARONE 900MG 500 ML IV SCH (18:00)
[2023-05-02] VITALS (21 sets, daily range): BP systolic 118–170; BP diastolic 72–112; PULSE 67–99; RESP 17–30; TEMP 97.6–98.2; O2SAT 74–100
[2023-05-02] MEDS: HYDRALAZINE HCL 20 MG/ML VIAL IV PRN (00:30)
[2023-05-02] MEDS: Doxycycline IV 100 MG in SODIUM CHLORIDE 0.9% 100 ML IV SCH ×2 (00:33→12:01)
[2023-05-02] MEDS: ONDANSETRON HCL INJ 2MG/ML 2ML 2 MG/ML VIAL IV PRN (00:52)
[2023-05-02] MEDS: Morphine 2mg Syringe 2 MG/ML SYR IV PRN (00:53)
[2023-05-02] MEDS: LEVALBUTEROL HCL SOLN NEBU 0.63 MG/3 ML NEB INH SCH ×7 (03:00→22:52)
[2023-05-02 06:31] LABS: BASOPHILS % 0.1 % (0.0-1.0); EOSINOPHILS % 0.2 % (0.0-6.0); HEMATOCRIT 35.9 % (38.2-49.6); HEMOGLOBIN 10.9 g/dL (14.0-18.0); LYMPHOCYTES # (AUTO) 0.8 (1.0-3.2); MEAN CORPUSCULAR HEMOGLOBIN 25.7 pg (28-32); MEAN CORPUSCULAR HGB CONC 30.4 g/dL (31-35); MEAN CORPUSCULAR VOLUME 84.7 fL (81-99); MONOCYTES # (AUTO) 0.7 (0.2-0.8); MONOCYTES % 7.8 % (4.4-11.3); NEUTROPHILS # (AUTO) 6.7 (2.1-6.9); NEUTROPHILS % 80.8 % (38.7-80.0); PLATELET COUNT 190 x10e3/uL (140-360); RED BLOOD COUNT 4.24 x10e6/uL (4.3-5.7); RED CELL DISTRIBUTION WIDTH 18.4 % (11.7-14.4); WHITE BLOOD COUNT 8.34 x10e3/uL (4.8-10.8)
[2023-05-02 07:17] LABS: ALBUMIN 3.4 g/dL (3.5-5.0); ALBUMIN/GLOBULIN RATIO 1.2 (0.8-2.0); ANION GAP 13.6 mmol/L (8-16); BILIRUBIN,TOTAL 0.9 mg/dL (0.2-1.2); CALCIUM 8.1 mg/dL (8.4-10.2); CREATININE, SERUM 0.72 mg/dL (0.72-1.25); POTASSIUM 3.6 mmol/L (3.5-5.1); TOTAL PROTEIN 6.2 g/dL (6.5-8.1)
[2023-05-02] MEDS: FUROSEMIDE INJ 10 MG/ML 2 ML VIAL IV SCH (08:59)
[2023-05-02] MEDS: AMLODIPINE BESYLATE 5 MG TAB PO SCH (08:59)
[2023-05-02] MEDS: LOSARTAN POTASSIUM 25 MG TAB PO SCH ×2 (08:59→17:23)
[2023-05-02] MEDS: METOPROLOL SUCCINATE 50 MG TAB XL PO SCH (09:00)
[2023-05-02] MEDS ORDERED: SODIUM CHLORIDE 0.9% 250ML 250 ML ONE (15:52)
[2023-05-02] MEDS: APIXABAN 5 MG TABLET PO SCH (17:23)
[2023-05-03] VITALS (13 sets, daily range): BP systolic 125–164; BP diastolic 96–112; PULSE 68–104; RESP 16–20; TEMP 97.7–98.3; O2SAT 92–100
[2023-05-03] MEDS: Doxycycline IV 100 MG in SODIUM CHLORIDE 0.9% 100 ML IV SCH ×2 (01:28→13:55)
[2023-05-03] MEDS: LEVALBUTEROL HCL SOLN NEBU 0.63 MG/3 ML NEB INH SCH ×6 (02:27→23:52)
[2023-05-03 06:28] LABS: BASOPHILS % 0.2 % (0.0-1.0); EOSINOPHILS # (AUTO) 0.1 (0.0-0.4); EOSINOPHILS % 1.5 % (0.0-6.0); HEMATOCRIT 34.6 % (38.2-49.6); HEMOGLOBIN 10.1 g/dL (14.0-18.0); LYMPHOCYTES % 15.1 % (18.0-39.1); MEAN CORPUSCULAR HEMOGLOBIN 25.2 pg (28-32); MEAN CORPUSCULAR HGB CONC 29.2 g/dL (31-35); MEAN CORPUSCULAR VOLUME 86.3 fL (81-99); MONOCYTES # (AUTO) 0.6 (0.2-0.8); MONOCYTES % 9.4 % (4.4-11.3); NEUTROPHILS # (AUTO) 4.7 (2.1-6.9); NEUTROPHILS % 72.9 % (38.7-80.0); PLATELET COUNT 173 x10e3/uL (140-360); RED BLOOD COUNT 4.01 x10e6/uL (4.3-5.7); RED CELL DISTRIBUTION WIDTH 17.9 % (11.7-14.4); WHITE BLOOD COUNT 6.48 x10e3/uL (4.8-10.8)
[2023-05-03 07:38] LABS: ALBUMIN 3.2 g/dL (3.5-5.0); ALBUMIN/GLOBULIN RATIO 1.2 (0.8-2.0); ANION GAP 10.4 mmol/L (8-16); BILIRUBIN,TOTAL 0.9 mg/dL (0.2-1.2); CALCIUM 8.1 mg/dL (8.4-10.2); CREATININE, SERUM 0.72 mg/dL (0.72-1.25); TOTAL PROTEIN 5.9 g/dL (6.5-8.1)
[2023-05-03 07:42] LABS: POTASSIUM 3.4 mmol/L (3.5-5.1)
[2023-05-03] MEDS: Morphine 2mg Syringe 2 MG/ML SYR IV PRN ×3 (08:38→20:31)
[2023-05-03] MEDS: FUROSEMIDE INJ 10 MG/ML 2 ML VIAL IV SCH (08:39)
[2023-05-03] MEDS: APIXABAN 5 MG TABLET PO SCH ×2 (08:48→17:08)
[2023-05-03] MEDS: AMLODIPINE BESYLATE 5 MG TAB PO SCH (08:48)
[2023-05-03] MEDS: METOPROLOL SUCCINATE 50 MG TAB XL PO SCH (08:48)
[2023-05-03] MEDS: LOSARTAN POTASSIUM 25 MG TAB PO SCH ×2 (08:49→17:08)
[2023-05-03] MEDS ORDERED: ONDANSETRON HCL 4 MG ORAL DISINTEGRATING TAB PO PRN (19:45)
[2023-05-03] MEDS ORDERED: ACETAMINOPHEN 325 MG TAB PO PRN (20:00)
[2023-05-04] VITALS (7 sets, daily range): BP systolic 144–151; BP diastolic 72–100; PULSE 62–83; RESP 17–18; TEMP 97.6–97.9; O2SAT 94–100
[2023-05-04] MEDS: Morphine 2mg Syringe 2 MG/ML SYR IV PRN ×2 (01:18→07:51)
[2023-05-04] MEDS: Doxycycline IV 100 MG in SODIUM CHLORIDE 0.9% 100 ML IV SCH (01:18)
[2023-05-04] MEDS: LEVALBUTEROL HCL SOLN NEBU 0.63 MG/3 ML NEB INH SCH ×2 (07:04→10:04)
[2023-05-04] MEDS: FUROSEMIDE INJ 10 MG/ML 2 ML VIAL IV SCH (07:50)
[2023-05-04] MEDS: AMLODIPINE BESYLATE 5 MG TAB PO SCH (07:50)
[2023-05-04] MEDS: APIXABAN 5 MG TABLET PO SCH (07:50)
[2023-05-04] MEDS: LOSARTAN POTASSIUM 25 MG TAB PO SCH (07:51)
[2023-05-04] MEDS: METOPROLOL SUCCINATE 50 MG TAB XL PO SCH (07:51)
[2023-05-04] MEDS ORDERED: TOPROL XL50 MG PO (09:11)
[2023-05-04] MEDS ORDERED: ELIQUIS5 MG PO (09:11)
[2023-05-04] MEDS ORDERED: DOXYCYCLINE HY100 MG PO (09:18)
== END 2023-05-04 10:52 | disposition home health service (06) | DRG 177 ==
LOC: ER 10:52 → ERHOLD 13:23 → MED/SURG2 14:56 → ICU 23:22 → MED/SURG3 05-02 13:10
PROVIDERS: ADMIT Internal Medicine; ATTEND Internal Medicine
PROC: 0W9B3ZZ Drainage of Left Pleural Cavity, Percutaneous Approach (ICD-10-PCS; principal; 2023-04-27)
PROC: 02HV33Z Insertion of Infusion Device into Superior Vena Cava, Percutaneous Approach (ICD-10-PCS; 2023-04-30)
PROC: B548ZZA Ultrasonography of Superior Vena Cava, Guidance (ICD-10-PCS; 2023-04-30)
PROC: 4A133R1 Monitoring of Arterial Saturation, Peripheral, Percutaneous Approach (ICD-10-PCS; 2023-04-30)
PROC: 3E0F7SF Introduction of Other Gas into Respiratory Tract, Via Natural or Artificial Opening (ICD-10-PCS; 2023-04-30)
DX: J69.0 Pneumonitis due to inhalation of food and vomit (principal); G93.41 Metabolic encephalopathy; I50.31 Acute diastolic (congestive) heart failure; J96.01 Acute respiratory failure with hypoxia; J91.8 Pleural effusion in other conditions classified elsewhere; E87.0 Hyperosmolality and hypernatremia; I48.91 Unspecified atrial fibrillation; G89.4 Chronic pain syndrome; G30.9 Alzheimer's disease, unspecified; J45.909 Unspecified asthma, uncomplicated; F02.80 Dementia in other diseases classified elsewhere, unspecified severity, without behavioral disturbance, psychotic disturbance, mood disturbance, and anxiety; N40.0 Benign prostatic hyperplasia without lower urinary tract symptoms; N31.9 Neuromuscular dysfunction of bladder, unspecified; K21.9 Gastro-esophageal reflux disease without esophagitis; I25.10 Atherosclerotic heart disease of native coronary artery without angina pectoris; R51.9 Headache, unspecified; M19.90 Unspecified osteoarthritis, unspecified site; E78.5 Hyperlipidemia, unspecified; D64.9 Anemia, unspecified; I11.0 Hypertensive heart disease with heart failure; E78.00 Pure hypercholesterolemia, unspecified; Z96.659 Presence of unspecified artificial knee joint; Z86.73 Personal history of transient ischemic attack (TIA), and cerebral infarction without residual deficits; I25.2 Old myocardial infarction
CPT/HCPCS: 32555; 36415; 36569; 36600; 70450; 71045; 71260; 74230; 74470; 80053; 81001; 82550; 82805; 83605; 83615; 83735; 84157; 84443; 84484; 85025; 85610; 85730; 87040; 87070; 87086; 87205; 89051; 93005; 93041; 93306; 94640; 94799; 99284; J1940; J2270; J2405; J2543; J2930; J3480; J7030; J7050; J7070; Q9967

== ENCOUNTER → 2023-09-05 | Outpatient (REF) | payer MEDICARE, BC ==
[~2023-09-05] MED LIST changes: +DOXYCYCLINE HY100 MG PO; +ELIQUIS5 MG PO; +TOPROL XL50 MG PO
== END ==
LOC: RAD 11:47
PROVIDERS: ATTEND Internal Medicine
DX: S60.211A Contusion of right wrist, initial encounter (principal); S20.219A Contusion of unspecified front wall of thorax, initial encounter; W01.0XXA Fall on same level from slipping, tripping and stumbling without subsequent striking against object, initial encounter; Z79.01 Long term (current) use of anticoagulants
CPT/HCPCS: 71046

== ENCOUNTER 2023-12-01 14:00 | Emergency (ER) | payer MEDICARE, BC ==
[~2023-12-01] VITALS: Ht 190.5 cm; Wt 89.4 kg
[2023-12-01 14:00] VITALS: TEMP 98.9
[2023-12-01 15:50] VITALS: PULSE 80; RESP 20; O2SAT 93
== END 2023-12-01 16:31 | disposition home or self-care (01) ==
LOC: ER 14:09
DX: M25.512 Pain in left shoulder (principal); S09.90XA Unspecified injury of head, initial encounter; W06.XXXA Fall from bed, initial encounter; Y93.84 Activity, sleeping; Y92.89 Other specified places as the place of occurrence of the external cause; J90 Pleural effusion, not elsewhere classified; I10 Essential (primary) hypertension; E78.5 Hyperlipidemia, unspecified; M19.09 Primary osteoarthritis, other specified site; M54.9 Dorsalgia, unspecified; G89.29 Other chronic pain; I25.2 Old myocardial infarction; Z86.73 Personal history of transient ischemic attack (TIA), and cerebral infarction without residual deficits; Z96.651 Presence of right artificial knee joint
CPT/HCPCS: 70450; 71045; 72125; 72170; 99283

== ENCOUNTER → 2023-12-06 | Outpatient (REF) | payer MEDICARE, BC | LOC: RAD 13:13 | PROVIDERS: ATTEND Internal Medicine | DX: R06.02 Shortness of breath (principal) | CPT/HCPCS: 71046 ==

== ENCOUNTER → 2024-03-26 | Outpatient (REF) | payer MEDICARE, BC | LOC: RAD 14:33 | PROVIDERS: ATTEND Internal Medicine | DX: R06.2 Wheezing (principal) | CPT/HCPCS: 71046 ==